=== PATIENT | male | born 1950 | race Caucasian/White ===

== ENCOUNTER 2022-03-30 13:34 | Emergency (ER) | payer MEDICARE, SELFPAY ==
[2022-03-30 13:51] VITALS: BP 134/83; PULSE 86; RESP 18; TEMP 36.4; O2SAT 98; BMI 36.6
--- NOTE | 2022-03-30 13:54 | XR_ITS ---
WS: [id number] Exam: XR chest 1V portable [id number] Date/Time of Exam: 03/30/2022 1:54 PM Reason For Exam: Possible new onset AFIB No priors. Mild cardiac enlargement noted. The lungs are clear and fully inflated. No pleural effusions. The med iastinum is normal in contour. Regional bony structures are intact. XR/XR chest 1V portable [id number] IMPRESSION: 1. Mild cardiac enlargement. No acute process.
--- NOTE | 2022-03-30 13:54 | ECG_ITS ---
[facility] Test Date: 2022-03-30 Pat Name: Jesus Yen Department: Room: Gender: Male Tableau Lead: : 1950 Requested By: Horace Garcia Order Number: [id number] Carmelo MD: Megan Coates M.D. Measurements Intervals [place] Rate: 93 P: NE: QRS: 13 QRSD: 81 T: 95 QT: 365 QTc: 455 Interpretive Statements ATRIAL FIBRILLATION WITH ABERRANT CONDUCTION OR VENTRICULAR PREMATURE COMPLEXES NONSPECIFIC ST & T-WAVE ABNORMALITY INTERPRETATION BASED ON A DEFAULT AGE OF 40 YEARS No previous ECG available for comparison Electronically Signed On 03-31-2022 0:19:56 CDT by Megan Coates M.D. [id number]
[2022-03-30 15:00] LABS: Basophils # 0.1 10^3/uL (0.0-0.1); Basophils % 0.7 %; Eosinophils # 0.1 10^3/uL (0.0-0.8); Eosinophils % 0.8 %; Hematocrit 48.7 % (42.0-52.0); Hemoglobin 15.9 g/dL (11.7-16.6); Lymphocytes # 1.8 10^3/uL (0.8-4.8); Lymphocytes % 21.1 %; Mean Corpuscular HGB Conc 32.6 g/dL (30.0-36.0); Mean Corpuscular Hemoglobin 31.9 pg (28.0-34.0); Mean Corpuscular Volume 97.6 fl (80-94); Mean Platelet Volume 12.4 fL (7.4-10.4); Monocytes # 0.9 10^3/uL (0.2-0.9); Monocytes % 10.5 %; Neutrophils % 66.7 %; Nucleated Red Blood Cells % 0 %; Platelet Count 106 10^3/cmm (130-400); Red Blood Count 4.99 10^6/uL (4.1-5.3); Red Cell Distribution Width 13.1 % (12.1-15.1); White Blood Count 8.4 10^3/uL (4.0-10.0)
[2022-03-30 15:28] LABS: Troponin(5th) Baseline 7 ng/L (0-15)
--- NOTE | 2022-03-30 15:30 | ED_ITS ---
HPI - General Adult General: Chief complaint: Chest Pain Stated complaint: Dr. Way sent for possible heart issues Time Seen by Provider: 03/30/22 15:22 Source: patient and family Mode of arrival: ambulatory Limitations: no limitations History of Present Illness: This patient was sent to the emergency department by the water treatment technician because of concerns about what appeared to be in new onset atrial fibrillation on his EKG. Patient states he had cataract removal and intraocular lens implant done 2 weeks ago and which occurred without any issues. He states he had the same procedure performed on the opposite eye today. Apparently sometime either during before or after surgery an EKG revealed a what appeared to be an atrial fibrillation rhythm. The patient states he has never been told he had this condition previously. He states he is pretty healthy and very active. 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 He c urrently is totally asymptomatic at this time. He states that he has not had any cardiovascular issues. He does not drink alcohol, smoke tobacco. Denies any family history of atrial fibrillation. He takes lisinopril for hypertension. He states he gets his primary care in [facility] and is never had any issues with heart rhythm issues based upon those examinations. Associated symptoms: Deny chest pain, dyspnea, headache(s), nausea, rash, palpitations, syncope or vomiting Review of Systems Const: Denies: fever(s) or chills Eyes: Denies: change in vision ENMT: Denies: throat pain, odynophagia, change in hearing, nasal discharge or nasal congestion Card: Denies: chest pain, palpitations, syncope or pre-syncope Resp: Denies: dyspnea, productive cough or non-productive cough GI: Denies: abdominal pain, nausea or vomiting : Denies: flank pain, difficulty urinating, dysuria or urinary frequency Musc: Denies: neck pain, back pain, extremity pain or extremity swelling Skin/Breast: Denies: rash or pruritus Neuro: Denies: headache(s), numbness in extremities or weakness in extremities Psych: Denies: anxiety or depression Endo: Denies: polyuria or polydipsia Terry/Lymph: Denies: easy bruising or easy bleeding Physical Exam Narrative: EXAM NARRATIVE: Patient is wearing dark glasses (status post cataract removal) and is alert and speaks in goal-directed sentences. Const: COMMON NORMALS: no acute distress, patient oriented x3 and no li mitations NUTRITIONAL APPEARANCE: overweight HENMT: COMMON NORMALS: normocephalic, atraumatic, Normal nasal mucous memb ranes and turbinates present, moist oral mucous membranes and oropharynx normal HEAD & SCALP: normocephalic and atraumatic FACE & SINUS: normal facial exam NOSE: Normal nasal mucous membranes and turbinates present Eye: OTHER: Currently status post cataract removal and intraocular lens implant from earlier today is wearing post operative dark glasses. Neck/C-Spine: COMMON NORMALS: full ROM, no JVD, Thyroid normal and No carotid bruits THYROID: Thyroid normal Chest: COMMONS NORMALS: normal inspection of the chest Resp: COMMON NORMALS: normal respiratory effort, No retractions, No use of accessory muscles and clear to auscultation bilaterally AUSCULTATION: clear to auscultation bilaterally Cardio: COMMON NORMALS: no JVD, No murmurs present (Cardio) and Peripheral pulses 2+ throughout RHYTHM: abnormal rhythm irregularly irregular PERIPHERAL PULSES: Peripheral pulses 2+ throughout GI: COMMON NORMALS: Normal to inspection, nondistended, normoactive bowel sounds present, Soft to palpation and non-tender PALPATION: Yes Soft to p alpation : COMMON NORMALS: Yes no CVA tenderness BLADDER/KIDNEY EXAM: Yes no CVA tenderness Back/Pelvis: COMMON NORMALS: no CVA tenderness, thoracic and lumbar spine normal to inspection, no thoracic nor lumbar tenderness and thoraco-lumbar ROM normal Extremity: COMMON NORMALS: normal to inspection, capillary refill normal, no joint enlargement, no calf tenderness and no pedal edema Neuro: COMMON NORMALS: patient oriented x3, moves all extremities and no sensory deficits noted SPEECH: speech normal Psych: COMMON NORMALS: mental status grossly normal Skin: COMMON NORMALS: no rashes or lesions noted and turgor normal GENERAL SKIN EXAM: no rashes or lesions noted and turgor normal Course Reevaluation(s): Reevaluation #1: Patient rate still remains controlled but still in atrial fibrillation. His pressure is risen some small amount but it is likely due to his being anxious about being in the emergency department also he is due for his evening dose of lisinopril. No other new or focal findings on repeat examination. Time: 17:53 Vital Signs: Vital signs: Vital Signs Temperature 97.5 F L 03/30/22 13:51 Pulse Rate 86 03/30/22 13:51 Respiratory Rate 18 03/30/22 13:51 Blood Pressure 134/83 03/30/22 13:51 Pulse Oximetry 98 03/30/22 13:51 Oxygen Delivery Me thod 03/30/22 13:51 MDM - General Adult Medical Decision Making Patient with newly discovered AF atrial fibrillation. Patient is totally asympt omatic with this condition. His work-up today has not revealed any evidence of ischemia, cardiomegaly or other clinical features of congestive heart failure and his vitals are otherwise stable and reassuring. Given his asymptomatic nature its uncertain whether he has been in atrial fib and how long of a duration. And therefore given his current clinical picture it is of uncertain duration cardioversion would not be recommended at this time. He has a cardiology appointment for 27 April. I discussed the risks and benefits of using a medication for stroke prevention and he voices understanding agrees to proceed. We will start him on Eliquis 5 mg twice daily given his age and creatinine and also have him start taking magnesium 4 mg daily. We discussed his follow-up as well as specific reasons to return to this or the nearest emergency department. He and his spouse voiced understanding. He is stable at this time for discharge. Current recommendations do not preclude Eliquis after cataract surgery Medical Records I reviewed the patient's medical records. Lab Data I reviewed the patient's lab results. : 03/30/22 14:50 03/30/22 14:50 Radiology Impressions Chest X-Ray 03/30/22 13:54 IMPRESSION: 1. Mild cardiac enlargement. No acute process. Laboratory Results WBC 8.4 10^3/uL (4.0-10.0) 03/30/22 14:50 RBC 4.99 10^6/uL (4.1-5.3) 03/30/22 14:50 Hgb 15.9 g/dL (11.7-16.6) 03/30/22 14:50 Hct 48.7 % (42.0-52.0) 03/30/22 14:50 MCV 97.6 fl (80-94) H 03/30/22 14:50 MCH 31.9 pg (28.0-34.0) 03/30/22 14:50 MCHC 32.6 g/dL (30.0-36.0) 03/30/22 14:50 RDW 13.1 % (12.1-15.1) 03/30/22 14:50 Plt Count 106 10^3/cmm (130-400) L 03/30/22 14:50 MPV 12.4 fL (7.4-10.4) H 03/30/22 14:50 Neut % (Auto) 66.7 % 03/30/22 14:50 Lymph % (Auto) 21.1 % 03/30/22 14:50 Moffat % (Auto) 10.5 % 03/30/22 14:50 Eos % (Auto) 0.8 % 03/30/22 14:50 Baso % (Auto) 0.7 % 03/30/22 14:50 Neut # (Auto) 5.60 10^3/uL (1.8-7.7) 03/30/22 14:50 Lymph # (Auto) 1.8 10^3/uL (0.8-4.8) 03/30/22 14:50 Moffat # (Auto) 0.9 10^3/uL (0.2-0.9) 03/30/22 14:50 Eos # (Auto) 0.1 10^3/uL (0.0-0.8) 03/30/22 14:50 Baso # (Auto) 0.1 10^3/uL (0.0-0.1) 03/30/22 14:50 Nucleated RBC % (auto) 0 % 03/30/22 14:50 Nucleated RBCs # 0.0 /100WBC 03/30/22 14:50 Sodium 137 mmol/L (136-145) 03/30/22 14:50 Potassium 4.2 mmol/L (3.5-5.1) 03/30/22 14:50 Chloride 100 mmol/L (98-107) 03/30/22 14:50 Carbon Dioxide 28 mmol/L (22-29) 03/30/22 14:50 Anion Gap 13.2 (5-19) 03/30/22 14:50 BUN 19 mg/dL (8-23) 03/30/22 14:50 Creatinine 0.8 mg/dL (0.7-1.2) 03/30/22 14:50 GFR Calculation 95.6 mL/min (90-130) 03/30/22 14:50 Glucose 94 mg/dL (65-115) 03/30/22 14:50 Calculated Osmolality 286 mOsm/kg (285-295) 03/30/22 14:50 Calcium 9.2 mg/dL (8.5-10.5) 03/30/22 14:50 Total Bilirubin 0.7 mg/dL (0.15-1.2) 03/30/22 14:50 AST 21 U/L (0-40) 03/30/22 14:50 ALT 23 U/L (0-41) 03/30/22 14:50 Alkaline Phosphatase 58 U/L (40-130) 03/30/22 14:50 Troponin T Baseline 7 ng/L (0-15) 03/30/22 14:50 Troponin T 120 Minute 6.00 ng/L (0-15) 03/30/22 16:49 NT-Pro-B Natriuret Pep 470 pg/mL (0-125) H 03/30/22 14:50 Total Protein 6.8 g/dL (6.6-8.7) 03/30/22 14:50 Albumin 4.1 g/dL (3.5-5.2) 03/30/22 14:50 Globulin 2.7 g/dL (1.3-4.6) 03/30/22 14:50 TSH 0.93 uIU/mL (0.27-4.20) 03/30/22 14:50 EKG Data EKG 1: I personally reviewed and interpreted this EKG as follows: Interpretation: Initial resting EKG reveals a rhythm which is irregularly irregular but a controlled ventricular response of [address]-T wave changes noted. No prior tracing available within the system. Computer generated interpretation: Chest X-Ray 03/30/22 13:54 IMPRESSION: 1. Mild cardiac enlargement. No acute process. EKG 2: I personally reviewed and interpreted this EKG as follows: Interpretation: Second EKG this visit reveals a underlying atrial fibrillation with a controlled ventricular response of 77 bpm. Normal intervals, normal axis. No acute ST-T wave changes noted. Computer generated interpretation: Chest X-Ray 03/30/22 13:54 IMPRESSION: 1. Mild cardiac enlargement. No acute process. Discharge Plan Discharge Patient Disposition: Home Clinical Impression: Atrial fibrillation Condition: Stable Prescriptions: New Eliquis 5 mg tablet 5 mg PO BID Qty: 60 1RF No Action zinc acetate 50 mg (zinc) Capsule 50 mg PO DAILY Fish Oil Concentrate 1,000 mg Capsule 1,000 mg PO DAILY lisinopril 20 mg tablet 20 mg PO BID Aspir-81 81 mg Tablet,Delayed Release (Dr/Ec) 81 mg PO BEDTIME Vitamin C 500 mg Tablet 500 mg PO DAILY Healthy Eyes 300 mcg-200 mg-27 mg-2 mg Tablet 1 tab PO BID magnesium oxide 400 mg magnesium Tablet 400 mg PO DAILY Discharge Orders: Discharge ED (Routine); Ordered 03/30/22 Ordered By: Markel Erickson Referrals: Yeison Way MD [Primary Care Provider] - Discharge Diet: Usual diet Discharge Activity: Increase activity as tolerated Patient Instructions: Opioid Safety, Pain Management Activity Restrictions/Additional Instructions: Take the blood thinner medications as we have prescribed. Also purchase yzeo-auj-opqxtal 400 mg of magnesium and take 1 to 2 pills daily. Follow-up with a director economic on 27 April as scheduled. Should you develop chest pain, shortness of breath, persistent fast heart rate over 100 or any other concerns return to this or the nearest emergency department. Avoid risky activities while on blood thinning medications. Coding Level of Care Code ED Nutrition Representative for Julio C Quiroz Exam Comprehensive
[2022-03-30 15:36] LABS: Alanine Aminotransferase 23 U/L (0-41); Albumin Level 4.1 g/dL (3.5-5.2); Alkaline Phosphatase 58 U/L (40-130); Anion Gap 13.2 (5-19); Aspartate Amino Transferase 21 U/L (0-40); Blood Urea Nitrogen 19 mg/dL (8-23); Calcium 9.2 mg/dL (8.5-10.5); Carbon Dioxide 28 mmol/L (22-29); Chloride 100 mmol/L (98-107); Globulin 2.7 g/dL (1.3-4.6); Glomerular Filtration Rate 95.6 mL/min (90-130); Glucose 94 mg/dL (65-115); NT Pro B Type Natriuretic Pept 470 pg/mL (0-125); Osmolality Calculated 286 mOsm/kg (285-295); Potassium 4.2 mmol/L (3.5-5.1); Sodium 137 mmol/L (136-145); Total Bilirubin 0.7 mg/dL (0.15-1.2); Total Protein 6.8 g/dL (6.6-8.7)
--- NOTE | 2022-03-30 15:54 | ECG_ITS ---
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 Measurements Intervals [place] Rate: 77 P: TN: QRS: 6 QRSD: 77 T: 87 QT: 355 QTc: 404 Interpretive Statements ATRIAL FIBRILLATION WITH ABERRANT CONDUCTION OR VENTRICULAR PREMATURE COMPLEXES ABNORMAL RHYTHM ECG Compared to ECG 03/30/2022 13:47:57 T-wave abnormality no longer present Electronically Signed On 03-31-2022 0:25:52 CDT by Megan Coates M.D. [id number]
[2022-03-30 16:00] LABS: Thyroid Stimulating Hormone 0.93 uIU/mL (0.27-4.20)
[2022-03-30 16:23] VITALS: BP 135/87; PULSE 84; O2SAT 95
[2022-03-30 16:30] VITALS: BP 141/79; PULSE 73; O2SAT 96
[2022-03-30 17:00] VITALS: BP 174/125; PULSE 79; O2SAT 97
[2022-03-30 17:30] VITALS: BP 168/110; PULSE 82; O2SAT 97
[2022-03-30] MEDS: apixaban 5 mg Tablet PO (18:07)
== END 2022-03-30 18:15 | disposition home or self-care (01) ==
PROVIDERS: Family Medicine; Emergency Provider Emergency Medicine; PCP Ophthalmology
DX: I48.91 Unspecified atrial fibrillation (principal)
CPT/HCPCS: 36415; 71045; 80053; 83880; 84443; 84484; 85025; 93005; 99285

== ENCOUNTER 2023-01-01 14:45 | Observation (INO) | payer MEDICARE, SELFPAY ==
[2023-01-01] VITALS (12 sets, daily range): BP systolic 108–179; BP diastolic 77–106; PULSE 94–134; RESP 16–28; TEMP 36.6–36.9; O2SAT 90–99
--- NOTE | 2023-01-01 14:57 | ED_ITS ---
HPI - General Adult General: Chief complaint: Abdominal Pain Stated complaint: Left side rib pain Time Seen by Provider: 01/01/23 14:57 History of Present Illness: Mr. Yen is a 72-year-old gentleman for left-sided chest discomfort. He ports onset of symptoms without known specific provoking event 5 days ago. Initially had improvement with taking izzx-zpx-utbznnr medications however symptoms have since resumed. He describes sharp pain in the left side of his chest radiating upwards. Denies other associated symptoms. Apparently has a history of atrial fibrillation however has not been taking any medications including anticoagulation as he has been trying to manage his health with diet and lifestyle. Moderate intensity symptoms. Now persistent course. He does endorse recent prolonged car ride however denies calf pain or leg swelling. No other specific changes in health, exacerbating, or alleviating factors identified. Onset (ago): day(s) Location: chest Severity: moderate Pain Consistency: constant Relieving factors: none Exacerbating factors: none Review of Systems General: Reports: 10 or more systems reviewed and unremarkable except in HPI and below PFSH ED PFSH: Medical History (Updated 01/03/23 @ 00:01 by TRISH Vazquez) History of atrial fibrillation History of hypertension Surgical History (Updated 01/01/23 @ 18:51 by Lamine Laguna MD) No pertinent past surgical history Family History (Updated 01/01/23 @ 18:51 by Lamine Laguna MD) Mother Stroke Seizure Social History (Updated 01/01/23 @ 18:51 by Lamine Laguna MD) Smoking and tobacco status: never smoked Alcohol intake: never Substance/Drug Use: never Physical Exam Const: COMMON NORMALS: alert GENERAL APPEARANCE: cooperative and well developed HENMT: COMMON NORMALS: normocephalic and atraumatic HEAD & SCALP: normocephalic and atraumatic Eye: COMMON NORMALS: conjunctivae normal CONJUNCTIVA: Yes conjunctivae normal SCLERA: sclerae normal Neck/C-Spine: COMMON NORMALS: supple GENERAL: Yes trachea midline Resp: COMMON NORMALS: clear to auscultation bilaterally EFFORT & INSPECTION: Yes able to speak in complete sentences AUSCULTATION: clear to auscultation bilaterally Cardio: RATE: tachycardic RHYTHM: abnormal rhythm irregularly irregular GI: COMMON NORMALS: Soft to palpation PALPATION: Yes Soft to palpation and No Tenderness to palpation present (GI) Extremity: GENERAL: Yes normal exam except as noted and No edema Neuro: COMMON NORMALS: moves all extremities SENSORIUM/ORIENTATION: Yes alert and No Orientation impaired Psych: COMMON NORMALS: mental status grossly normal and Normal thought process present THOUGHT PROCESS: Normal thought process present Course Vital Signs: Vital signs: Vital Signs Temperature 98.4 F 01/02/23 15:32 Pulse Rate 81 01/02/23 15:32 Respiratory Rate 16 01/02/23 15:32 Blood Pressure 109/82 01/02/23 11:34 Pulse Oximetry 96 01/02/23 15:32 Oxygen Delivery Me thod Room Air 01/02/23 11:34 [facility] - General Adult Medical Decision Making 72-year-old lady presenting with upper abdominal and chest pain. Exam as above. Tachycardic with atrial fibrillation and RVR. Tachypneic. Nontoxic. EKG demonstrates A-fib with RVR, left axis deviation with nonspecific ST segment abnormalities. Labs with leukocytosis and normal hemoglobin. Metabolic panel without acute derangement explain symptoms. Negative range 2-hour delta troponin. Chest x-ray with cardiomegaly however no lobar consolidation or pneumothorax. Given location of pain and no clear explanation CT warranted. CT demonstrates no PE, small pleural effusions, cardiomegaly and pericardial effusion, no clear intra-abdominal findings as cause of epigastric pain. Patient treated with aspirin, small fluid bolus, subsequently diltiazem and drip. The results of ED evaluation were discussed with the patient including plan for admission due to requirement for level of care not available if discharged to prevent significant worsening/deterioration. Patient agreeable with plan. Discussed with hospitalist service who was agreeable to admit patient. Medical Records I reviewed the patient's medical records. Lab Data I reviewed the patient's lab results. 01/02/23 04:24 01/02/23 04:24 Radiology Impressions Chest X-Ray 01/01/23 15:01 IMPRESSION: Mild cardiomegaly and without acute findings or significant change with prior exam. Chest/Abdomen/Pelvis CT 01/01/23 15:59 IMPRESSION: 1. No CT findings to indicate pulmonary embolus. No findings thoracic aortic dissection. 2. Very small posterior pleural effusion mid and lower left chest and trace posterior pleural effusion lower right chest. Subjacent atelectasis within the lung bases, [id number]-[id number]-fzww-right. 3. Mild cardiomegaly and small pericardial effusion, along with coronary artery and aortic valve calcification. 4. Mild benign healed granulomatous disease change. IMPRESSION: 1. Mild atherosclerotic vascular calcification without abdominal aortic aneurysm. 2. Prostate gland is mildly prominent with a few calcifications and with mild indentation on the posteroinferior urinary bladder. 3. No acute findings otherwise. Laboratory Results WBC 11.9 10^3/uL (4.0-10.0) H 01/01/23 15: RBC 4.96 10^6/uL (4.1-5.3) 01/01/23 15: Hgb 15.7 g/dL (11.7-16.6) 01/01/23 15: Hct 47.9 % (42.0-52.0) 01/01/23 15: MCV 96.6 fl (80-94) H 01/01/23 15: MCH 31.7 pg (28.0-34.0) 01/01/23 15: MCHC 32.8 g/dL (30.0-36.0) 01/01/23 15: RDW 13.0 % (12.1-15.1) 01/01/23 15: Plt Count 148 10^3/cmm (130-400) 01/01/23 15: MPV 11.4 fL (7.4-10.4) H 01/01/23 15: Neut % (Auto) 78.8 % 01/01/23 15: Lymph % (Auto) 11.0 % 01/01/23 15: Cotton % (Auto) 9.3 % 01/01/23 15: Eos % (Auto) 0.3 % 01/01/23: Baso % (Auto) 0.3 % 01/01/23 15: Neut # (Auto) 9.40 10^3/uL (1.8-7.7) H 01/01/23 15: Lymph # (Auto) 1.3 10^3/uL (0.8-4.8) 01/01/23: Cotton # (Auto) 1.1 10^3/uL (0.2-0.9) H 01/01/23 15:29 Eos # (Auto) 0.0 10^3/uL (0.0-0.8) 01/01/23 15:29 Baso # (Auto) 0.0 10^3/uL (0.0-0.1) 01/01/23 15:29 Nucleated RBC % (auto) 0 % 01/01/23 15: Nucleated RBCs # 0.0 /100WBC 01/01/23 15:29 ESR 18 mm/hr (0-10) H 01/01/23 15:29 D-Dimer 1.10 ug/mIFEU (0-0.59) H 01/01/23 15:29 Sodium 138 mmol/L (136-145) 01/01/23 15:29 Potassium 4.3 mmol/L (3.5-5.1) 01/01/23 15: Chloride 101 mmol/L (98-107) 01/01/23 15: Carbon Dioxide 25 mmol/L (22-29) 01/01/23 15:29 Anion Gap 16.3 (5-19) 01/01/23 15:29 BUN 16 mg/dL (8-23) 01/01/23 15: Creatinine 0.7 mg/dL (0.7-1.2) 01/01/23 15:29 GFR Calculation Not Reportable 01/01/23 15:29 Glucose 113 mg/dL (65-115) 01/01/23 15:29 Estimat Average Glucose 111 01/01/23 15:29 Hemoglobin A1c 5.5 % (4.0-6.0) 01/01/23 15:29 Calculated Osmolality 288 mOsm/kg (285-295) 01/01/23 15:29 Calcium 8.9 mg/dL (8.5-10.5) 01/01/23 15: Magnesium 2.0 mg/dL (1.7-2.3) 01/01/23 15:29 Total Bilirubin 1.2 mg/dL (0.15-1.2) 01/01/23 15:29 AST 18 U/L (0-40) 01/01/23 15: ALT 19 U/L (0-41) 01/01/23 15:29 Alkaline Phosphatase 77 U/L (40-130) 01/01/23 15:29 Troponin T Baseline 10 ng/L (0-15) 01/01/23 15:29 Troponin T 120 Minute 9.58 ng/L (0-15) 01/01/23 17:59 Delta Troponin T -0.42 ABS# (0-10) L 01/01/23 17:59 C-Reactive Protein 68.6 mg/L (0.0-4.9) H 01/01/23 17:59 NT-Pro-B Natriuret Pep 932 pg/mL (0-125) H 01/01/23 15:29 Total Protein 6.8 g/dL (6.6-8.7) 01/01/23 15: Albumin 3.8 g/dL (3.5-5.2) 01/01/23 15: Globulin 3.0 g/dL (1.3-4.6) 01/01/23 15:29 Triglycerides 55 mg/dL (0-150) 01/01/23 17:59 Cholesterol 152 mg/dL (0-200) 01/01/23 17:59 LDL Cholesterol, Calc 104 mg/dL (50-129) 01/01/23 17:59 HDL Cholesterol 37 mg/dL (60-100) L 01/01/23 17:59 LDL/HDL Ratio 2.81 RATIO (0.00-3.22) 01/01/23 17:59 Cholesterol/HDL Ratio 4.11 mg/dL (1.0-5.00) 01/01/23 17:59 TSH 0.84 uIU/mL (0.27-4.20) 01/01/23 17:59 Critical Care Time Critical Care Time: Critical Care Time: Yes Total Critical Care Time: 35 Attestation: Due to a high probability of clinically significant, possibly life threatening deterioration, the patient required my highest level of attention and preparedness to intervene emergently and I personally spent this critical care time directly and personally managing the patient. This critical care time inc luded obtaining a history; examining the patient; pulse oximetry; ordering and review of laboratory and imaging studies; arranging urgent treatment with development of a management plan; evaluation of patient's response to treatment; frequent reassessment; and, discussions with other providers as applicable. It was exclusive of separately billable procedures. Primary system is cardiac Discharge Plan Discharge Patient Disposition: Admitted As Inpatient Admit Provider: Lamine Laguna Clinical Impression: Atrial fibrillation with RVR, Cardiac volume overload, Chest pain Condition: Stable Discharge Diet: Cardiac Discharge Activity: Resume usual activity Coding Level of Care Code ED Photographer Apprentice Lithographic for Julio C Quiroz
--- NOTE | 2023-01-01 15:01 | XRR_ITS ---
PROCEDURE INFORMATION: Exam: XR Chest Exam date and time: 01/01/2023 3:07 PM Age: 72 years old Clinical indication: Pain; Chest pressure; Additional info: Cp TECHNIQUE: Imaging protocol: Radiologic exam of the chest. Views: 1 view. COMPARISON: CR XR chest 1V portable [id number] 03/30/2022 3:21 PM FINDINGS: Tubes, catheters and devices: Overlying monitor leads. Lungs: Unremarkable. No consolidation. Pleural spaces: Unremarkable. No pleural effusion. No pneumothorax. Heart/Mediastinum: Mild cardiomegaly as seen with prior exam. Bones/joints: Visualized osseous structures show no acute abnormality. Mild degenerative change about the thoracic spine and shoulders. XR/XR chest 1V portable [id number] IMPRESSION: Mild cardiomegaly and without acute findings or significant change with prior exam.
--- NOTE | 2023-01-01 15:02 | ECG_ITS ---
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 Measurements Intervals [place] Rate: 133 P: 0 SC: 0 QRS: -11 QRSD: 83 T: 58 QT: 298 QTc: 444 Interpretive Statements ATRIAL FIBRILLATION WITH RAPID VENTRICULAR RESPONSE NONSPECIFIC ST & T-WAVE ABNORMALITY Compared to ECG 03/30/2022 17:16:14 T-wave abnormality now present Ventricular premature complex(es) no longer present Aberrant conduction of supraventricular beat(s) no longer present Electronically Signed On 01-03-2023 8:33:57 CDT by Remy Estrada M.D. [id number]
[2023-01-01 15:38] LABS: Basophils % 0.3 %; Eosinophils % 0.3 %; Hematocrit 47.9 % (42.0-52.0); Hemoglobin 15.7 g/dL (11.7-16.6); Lymphocytes # 1.3 10^3/uL (0.8-4.8); Mean Corpuscular HGB Conc 32.8 g/dL (30.0-36.0); Mean Corpuscular Hemoglobin 31.7 pg (28.0-34.0); Mean Corpuscular Volume 96.6 fl (80-94); Mean Platelet Volume 11.4 fL (7.4-10.4); Monocytes # 1.1 10^3/uL (0.2-0.9); Monocytes % 9.3 %; Neutrophils % 78.8 %; Nucleated Red Blood Cells % 0 %; Platelet Count 148 10^3/cmm (130-400); Red Blood Count 4.96 10^6/uL (4.1-5.3); White Blood Count 11.9 10^3/uL (4.0-10.0)
[2023-01-01] MEDS: aspirin 81 mg Chew Tablet 324 MG PO (15:52)
[2023-01-01] MEDS: sodium chloride 0.9% 500 ML 999 ML IV (15:56)
--- NOTE | 2023-01-01 15:59 | CTR_ITS ---
PROCEDURE INFORMATION: Exam: CTA Chest With Contrast Exam date and time: 01/01/2023 5:01 PM Age: 72 years old Clinical indication: Abdominal tenderness; Other: Pain; Additional info: L chest and luq pain TECHNIQUE: Imaging protocol: Computed tomographic angiography of the chest with contrast. Exam focused on the arteries. 3D rendering (Not supervised by radiologist): MIP and/or 3D reconstructed images were created by the technologist. Radiation optimization: All CT scans at this facility use at least one of these dose optimization techniques: automated exposure control; mA and/or kV adjustment per patient size (includes targeted exams where dose is matched to clinical indication); or iterative reconstruction. Contrast material: OMNIPAQUE 350; Contrast volume: 100 ml; Contrast route: INTRAVENOUS (IV); REPORTING DATA: Count of CT and Cardiac NM exams in prior 12 months: This patient has received 0 known CTs and 0 known cardiac nuclear medicine studies in the 12 months prior to the current study. COMPARISON: CR (CHEST, ) 01/01/2023 3:07 PM RADIATION DOSE METRICS: Total DLP (mGy-cm): 1112.1 FINDINGS: Pulmonary arteries: No significant hypodense pulmonary artery filling defects to indicate pulmonary embolus. Aorta: No findings thoracic aortic dissection aneurysm. Lungs: See pleural space finding. Pleural spaces: Very small posterior pleural effusion mid and lower left chest. Trace posterior pleural effusion lower right chest. Subjacent basilar atelectasis, [id number]-wrycnqy-wdnm-right. No focal pulmonary parenchymal infiltrate or consolidation. No mass. No pneumothorax. Heart: Mild cardiomegaly. Small pericardial effusion. Coronary artery calcification. Aortic valve calcification. Lymph nodes: Mild calcified nodes inferior right hilum and calcified granuloma lower right lung indicating benign healed granulomatous disease. Nonspecific mediastinal lymph nodes without significant enlargement. Bones/joints: Spondylotic change Soft tissues: Unremarkable. PROCEDURE INFORMATION: Exam: CT Abdomen And Pelvis With Contrast Exam date and time: 01/01/2023 5:01 PM Age: 72 years old Clinical indication: Abdominal tenderness; Other: Pain; Additional info: L chest and luq pain TECHNIQUE: Imaging protocol: Computed tomography of the abdomen and pelvis with contrast. Radiation optimization: All CT scans at this facility use at least one of these dose optimization techniques: automated exposure control; mA and/or kV adjustment per patient size (includes targeted exams where dose is matched to clinical indication); or iterative reconstruction. Contrast material: OMNIPAQUE 350; Contrast volume: 100 ml; Contrast route: INTRAVENOUS (IV); REPORTING DATA: Count of CT and Cardiac NM exams in prior 12 months: This patient has received 0 known CTs and 0 known cardiac nuclear medicine studies in the 12 months prior to the current study. COMPARISON: CR (CHEST, ) 01/01/2023 3:07 PM RADIATION DOSE METRICS: Total DLP (mGy-cm): 1112.1 FINDINGS: Liver: Normal. No mass. Gallbladder and bile ducts: Normal. No calcified stones. No ductal dilation. Pancreas: Normal. No ductal dilation. Spleen: Normal. No splenomegaly. Adrenal glands: Normal. No mass. Kidneys and ureters: Normal. No hydronephrosis. Stomach and bowel: Unremarkable. No obstruction. No mucosal thickening. No CT findings of diverticulitis. Appendix: No evidence of appendicitis. Intraperitoneal space: Unremarkable. No free air. No significant fluid collection. Vasculature: Mild atherosclerotic calcification without aneurysmal dilatation of the abdominal aorta. Lymph nodes: Unremarkable. No enlarged lymph nodes. Urinary bladder: See Reproductive finding. Reproductive: Several prostate calcification noted with mildly prominent prostate gland. Urinary bladder demonstrates mild prostate indentation posteriorly and inferiorly and otherwise unremarkable. Bones/joints: Mild spondylotic change of the lumbar spine. Acute osseous abnormality. Soft tissues: Unremarkable. CT/CT angio chest w abd pel w con IMPRESSION: 1. No CT findings to indicate pulmonary embolus. No findings thoracic aortic dissection. 2. Very small posterior pleural effusion mid and lower left chest and trace posterior pleural effusion lower right chest. Subjacent atelectasis within the lung bases, sark-[id number]-tmnd-right. 3. Mild cardiomegaly and small pericardial effusion, along with coronary artery and aortic valve calcification. 4. Mild benign healed granulomatous disease change. IMPRESSION: 1. Mild atherosclerotic vascular calcification without abdominal aortic aneurysm. 2. Prostate gland is mildly prominent with a few calcifications and with mild indentation on the posteroinferior urinary bladder. 3. No acute findings otherwise.
[2023-01-01 16:03] LABS: Troponin(5th) Baseline 10 ng/L (0-15)
[2023-01-01 16:13] LABS: Alanine Aminotransferase 19 U/L (0-41); Albumin Level 3.8 g/dL (3.5-5.2); Alkaline Phosphatase 77 U/L (40-130); Anion Gap 16.3 (5-19); Aspartate Amino Transferase 18 U/L (0-40); Blood Urea Nitrogen 16 mg/dL (8-23); Calcium 8.9 mg/dL (8.5-10.5); Carbon Dioxide 25 mmol/L (22-29); Chloride 101 mmol/L (98-107); Glucose 113 mg/dL (65-115); NT Pro B Type Natriuretic Pept 932 pg/mL (0-125); Osmolality Calculated 288 mOsm/kg (285-295); Potassium 4.3 mmol/L (3.5-5.1); Sodium 138 mmol/L (136-145); Thyroid Stimulating Hormone 1.04 uIU/mL (0.27-4.20); Total Bilirubin 1.2 mg/dL (0.15-1.2); Total Protein 6.8 g/dL (6.6-8.7)
[2023-01-01] MEDS: iohexol 350 mg/mL 500 mL Btl (per mL) IV (16:51)
--- NOTE | 2023-01-01 17:02 | ECG_ITS ---
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 Measurements Intervals [place] Rate: 107 P: 0 MI: 0 QRS: 0 QRSD: 81 T: 65 QT: 314 QTc: 421 Interpretive Statements ATRIAL FIBRILLATION WITH RAPID VENTRICULAR RESPONSE WITH ABERRANT CONDUCTION OR VENTRICULAR PREMATURE COMPLEXES NONSPECIFIC T-WAVE ABNORMALITY Compared to ECG 01/01/2023 15:04:59 Ventricular premature complex(es) now present Aberrant conduction of supraventricular beat(s) now present T-wave abnormality still present Electronically Signed On 01-03-2023 8:37:31 CDT by Remy Estrada M.D. [id number]
[2023-01-01] MEDS: dilTIAZem 5 mg/mL SDV 5 mL 20 MG IVP (18:02)
[2023-01-01] MEDS: dilTIAZem 100 MG in sodium chloride 0.9% (add-van) 100 ML IV (18:03)
[2023-01-01 18:32] LABS: Troponin 5 2HR 9.58 ng/L (0-15)
[2023-01-01] MEDS: morphine 4 mg/mL SDV 1 mL 2 MG IVP ×2 (18:37→23:25)
--- NOTE | 2023-01-01 18:47 | P.HP_ITS ---
Providers/Chief Complaint Admitting Physician: Lamine Laguna MD Primary Care Provider: Demetra Whelan APN Chief Complaint: Left side rib pain History of Present Illness Jesus Yen is a 72 year old male with a past medical history of atrial fibrillation not on anticoagulation, hypertension, who presents to [facility] due to pain under his left breast. Patient tells me that he was diagnosed with A-fib when he had eye surgery, he was asymptomatic, he did not take any blood thinners or any medications, denies a history of CAD, no history of strokes, he tells me that he has had a stressful week, his sister is dying of liver cirrhosis, he is recently returned from a trip from [facility], no calf, calf swelling, hemoptysis, he started noticing pain under his left breast, radiating down the side, he tells me he has used up to 900 mg of ibuprofen for the pain last time he used this was yesterday evening, here in the emergency room he was diagnosed with A-fib with RVR Review of Systems Const: Denies: fever(s) Eyes: Denies: change in vision ENMT: Denies: throat pain Card: Reports: chest pain Resp: Denies: dyspnea GI: Denies: abdominal pain : Denies: flank pain or difficulty urinating Musc: Denies: neck pain or back pain Skin/Breast: Denies: rash Neuro: Denies: headache(s) Psych: Reports: anxiety Endo: Denies: polyuria Medications/Allergies Home Medications Medication Instructions Recorded Confirmed Last Taken Type ascorbic acid (vitamin C) 500 mg 500 mg PO DAILY 03/30/22 01/01/23 01/01/23 History tablet (Vitamin C) lisinopril 20 mg tablet 20 mg PO BID 03/30/22 01/01/23 01/01/23 History magnesium oxide 400 mg PO DAILY 03/30/22 01/01/23 01/01/23 History omega-3 fatty acids 1,000 mg 1,000 mg PO DAILY 03/30/22 01/01/23 01/01/23 History capsule Allergies Allergy/AdvReac Type Severity Reaction Status Date / Time No Known Allergies Allergy Verified 01/01/23 15:04 PFSH Acute PFSH: Medical History (Updated 01/01/23 @ 18:50 by Lamine Laguna MD) History of atrial fibrillation History of hypertension Surgical History (Updated 01/01/23 @ 18:51 by Lamine Laguna MD) No pertinent past surgical history Family History (Updated 01/01/23 @ 18:51 by Lamine Laguna MD) Mother Stroke Seizure Social History (Updated 01/01/23 @ 18:51 by Lamine Laguna MD) Smoking and tobacco status: never smoked Alcohol intake: never Substance/Drug Use: never Vitals/I&O/Wt Last Vital Signs Temp 98 F 01/01/23 18:09 Pulse 94 01/01/23 18:30 Resp 18 01/01/23 18:37 BP 119/83 01/01/23 18:30 Pulse Ox 95 01/01/23 18:30 O2 Del Method Room Air 01/01/23 18:30 Weight last 48 hrs Weight 121.563 kg Physical Exam Const: COMMON NORMALS: no acute distress and patient oriented x3 HENMT: COMMON NORMALS: normocephalic HEAD & SCALP: normocephalic Eye: COMMON NORMALS: Equal, round and reactive pupils present and EOMs intact bilaterally Neck/C-Spine: COMMON NORMALS: no JVD Lymph: LYMPHATIC: no lymphadenopathy noted Chest: COMMONS NORMALS: normal inspection of the chest OTHER: Left chest tenderness to palpation under left breast, Resp: COMMON NORMALS: normal respiratory effort, No retractions, No use of accessory muscles and clear to auscultation bilaterally AUSCULTATION: clear to auscultation bilaterally Cardio: COMMON NORMALS: no JVD, S1 normal heart sound present and S2 normal heart sound present HEART SOUNDS: S1 normal heart sound present and S2 normal heart sound present GI: COMMON NORMALS: Normal to inspection, nondistended, normoactive bowel sounds present, Soft to palpation and non-tender PALPATION: Yes Soft to palpation Extremity: COMMON NORMALS: no pedal edema Neuro: COMMON NORMALS: patient oriented x3, CN's II-XII intact bilaterally and moves all extremities Psych: COMMON NORMALS: mental status grossly normal Data 01/01/23 15:29 01/01/23 15:29 CXR: My impression: Shows cardiomegaly EKG 1: My Interpretation: Shows A-fib with RVR A&P Assessment and plan (1) Atrial fibrillation with RVR: (2) Chest pain: Plan A-fib with RVR -Continue Cardizem drip -Steve vas score 2, continue heparin drip -Full code -Heparin for DVT prophylaxis Chest pain -Serial EKGs, serial troponins, telemetry monitoring -Monitor for recurrent chest pain -Lipid panel, A1c Attestations Medical Necessity Statement*: Patient requires hospitalization, outpatient with observation, for A-fib with RVR, chest pain Diagnoses Atrial fibrillation with RVR I48.91 Chest pain R07.9
[2023-01-01 19:18] LABS: Troponin 5 2HR Delta -0.42 ABS# (0-10)
[2023-01-01 20:11] LABS: Erythrocyte Sedimentation Rate 18 mm/hr (0-10)
[2023-01-01 20:33] LABS: C Reactive Protein 68.6 mg/L (0.0-4.9); Chol HDL Ratio 4.11 mg/dL (1.0-5.00); Cholesterol 152 mg/dL (0-200); HDL Cholesterol 37 mg/dL (60-100); LDL Cholesterol Calculated 104 mg/dL (50-129); LDL HDL Ratio 2.81 RATIO (0.00-3.22); Thyroid Stimulating Hormone 0.84 uIU/mL (0.27-4.20); Triglycerides 55 mg/dL (0-150)
--- NOTE | 2023-01-01 20:42 | ECG_ITS ---
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 Measurements Intervals [place] Rate: 92 P: 0 TX: 0 QRS: -6 QRSD: 82 T: 31 QT: 339 QTc: 420 Interpretive Statements ATRIAL FIBRILLATION NONSPECIFIC ST & T-WAVE ABNORMALITY Compared to ECG 01/01/2023 17:22:56 Ventricular premature complex(es) no longer present Aberrant conduction of supraventricular beat(s) no longer present T-wave abnormality still present Electronically Signed On 01-03-2023 8:37:09 CDT by Remy Estrada M.D. [id number]
[2023-01-01] MEDS: dilTIAZem 30 mg Tablet PO (21:01)
[2023-01-01] MEDS: pantoprazole 40 mg SDV IVP (21:01)
[2023-01-01 21:03] LABS: Glucose Point of Care 116 mg/dL (70-110)
[2023-01-01 22:06] LABS: Troponin 5 6HR 10.34 ng/L (0-15)
[2023-01-01 22:08] LABS: Estmated Average Glucose 111; Hemoglobin A1C 5.5 % (4.0-6.0)
[2023-01-01 22:10] LABS: Troponin 5 6HR Delta 0.34 ng/L (0-12)
[2023-01-01] MEDS: heparin drip 25,000 UNIT/500 ML PREMIX 34 UNIT IV (22:25)
[2023-01-02] MEDS: dilTIAZem 30 mg Tablet PO ×3 (02:40→13:54)
[2023-01-02 04:00] VITALS: BP 110/75; PULSE 85; RESP 18; TEMP 36.8; O2SAT 93
[2023-01-02 04:32] LABS: Basophils # 0.1 10^3/uL (0.0-0.1); Basophils % 0.5 %; Eosinophils # 0.1 10^3/uL (0.0-0.8); Eosinophils % 0.8 %; Hematocrit 44.1 % (42.0-52.0); Lymphocytes # 1.7 10^3/uL (0.8-4.8); Lymphocytes % 16.2 %; Mean Corpuscular HGB Conc 31.7 g/dL (30.0-36.0); Mean Corpuscular Hemoglobin 31.4 pg (28.0-34.0); Mean Corpuscular Volume 98.9 fl (80-94); Mean Platelet Volume 11.2 fL (7.4-10.4); Monocytes # 1.1 10^3/uL (0.2-0.9); Monocytes % 10.4 %; Neutrophils # 7.54 10^3/uL (1.8-7.7); Neutrophils % 71.6 %; Nucleated Red Blood Cells % 0 %; Platelet Count 146 10^3/cmm (130-400); Red Blood Count 4.46 10^6/uL (4.1-5.3); Red Cell Distribution Width 13.1 % (12.1-15.1); White Blood Count 10.5 10^3/uL (4.0-10.0)
[2023-01-02 04:41] VITALS: PULSE 72
[2023-01-02 04:54] LABS: Partial Thromboplastin Time 79.3 SECONDS (23.9-36.7)
[2023-01-02 05:22] LABS: Alanine Aminotransferase 14 U/L (0-41); Albumin Level 3.4 g/dL (3.5-5.2); Alkaline Phosphatase 66 U/L (40-130); Anion Gap 18.1 (5-19); Aspartate Amino Transferase 12 U/L (0-40); Blood Urea Nitrogen 16 mg/dL (8-23); Calcium 8.6 mg/dL (8.5-10.5); Carbon Dioxide 22 mmol/L (22-29); Chloride 102 mmol/L (98-107); Globulin 2.6 g/dL (1.3-4.6); Glucose 116 mg/dL (65-115); Osmolality Calculated 288 mOsm/kg (285-295); Phosphorus 3.6 mg/dL (2.5-4.5); Potassium 4.1 mmol/L (3.5-5.1); Sodium 138 mmol/L (136-145)
[2023-01-02 05:33] LABS: NT Pro B Type Natriuretic Pept 746 pg/mL (0-125)
[2023-01-02 06:30] LABS: Glucose Point of Care 127 mg/dL (70-110)
[2023-01-02 07:34] VITALS: BP 116/93; PULSE 84; RESP 27; TEMP 31.7; O2SAT 94
[2023-01-02] MEDS: FUROsemide 10 mg/mL SDV 4mL 40 MG IVP (08:22)
[2023-01-02] MEDS: apixaban 5 mg Tablet PO (10:26)
[2023-01-02 11:34] VITALS: BP 109/82; PULSE 90; RESP 13; TEMP 36.9; O2SAT 93
[2023-01-02 12:13] LABS: Partial Thromboplastin Time 59.4 SECONDS (23.9-36.7)
[2023-01-02 14:08] VITALS: PULSE 81
--- NOTE | 2023-01-02 15:15 | P.DS_ITS ---
Discharge Providers Date of Admission: 01/01/23 18:55 Date of Discharge: January 02, 2023 Attending Provider at Admission: Lamine Laguna MD Attending Provider at Discharge: Lamine Laguna MD Primary Care Provider: Demetra Whelan APN Diagnoses at Discharge Discharge Diagnosis (1) Atrial fibrillation with RVR: Status: Acute (2) Chest pain: Status: Acute Reason for Visit Reason for Visit: Left side rib pain Hospital Course Hospital Course Jesus Yen is a 72 year old male with a past medical history of atrial fibrillation not on anticoagulation, hypertension, who presents to [facility] due to pain under his left breast.? Patient tells me that he was diagnosed with A-fib when he had eye surgery, he was asymptomatic, he did not take any blood thinners or any medications, denies a history of CAD, no history of strokes, he tells me that he has had a stressful week, his sister is dying of liver cirrhosis, he is recently returned from a trip from [facility], no calf, calf swelling, hemoptysis, he started noticing pain under his left breast, radiating down the side, he tells me he has used up to 900 mg of ibuprofen for the pain last time he used this was yesterday evening, here in the emergency room he was diagnosed with A-fib with RVR Patient was admitted to [facility] for A-fib with RVR managed with Cardizem drip transition to oral Cardizem, managed with heparin drip, overall clinically improved, remains in A-fib, rate controlled patient will be discharged on Cardizem 60 every 6 hours with Eliquis 5 mg twice daily, monitor for bloody black stools or lightheadedness or chest palpitations if so go to emergency room For his chest discomfort, echocardiogram findings as below 1-Normal left ventricular size, systolic function and wall ?thickness, with no regional wall motion abnormalities.left ?ventricular ejection fraction is estimated at 55 %.? .Grade ?II/IV diastolic dysfunction, moderately elevated filling ?pressures. ?2- Moderately increased left atrial size. ?3-Severe aortic valve calcification. Moderate aortic valve ?stenosis, mean gradient 7.7 mmHg, KALEB 1.5 cm squared. Trace aortic ?valve regurgitation. ?4-Structurally normal mitral valve without significant stenosis ?or prolapse.? There is mild mitral regurgitation.? ?5-There is no pericardial effusion. ?6-Right atrial pressure is around 5-10 mm of mercury. ?7-There are no prior echocardiogram studies to compare. -No significant wall motion abnormalities - no recurrent Chest pain -No significant delta troponin -Discharged on aspirin, statin with a follow-up with cardiology as outpatient for conssideration of stress testing Patient also had pain along his left rib, seen musculoskeletal nature had pain on palpation, discharged on Ultram as needed for pain avoid NSAIDs including ibuprofen, Aleve, naproxen For aortic valve stenosis follow-up with cardiology - For your atrial fibrillation please take Cardizem 60 mg every 12 hours -Please take Eliquis as prescribed -Eliquis is a very strong blood thinner, if you develop bloody or black stools or lightheadedness please go to emergency room -See your primary care provider to recheck hemoglobin in 1 week -For your diastolic CHF, if you develop lower extremity edema or increased shortness of breath, you can use Lasix 40 mg daily as needed with potassium 20 meqequivalents, I would use it for only 3 days in a row, if beyond 3 days you continue to feel short of breath go to the emergency room -If you develop chest pain please use nitroglycerin -Continue aspirin, statin -You can use tramadol as needed for left chest wall discomfort -If you have any chest pain go to the emergency room please see cardiology in the next few days -Please follow-up with cardiology for aortic valve stenosis follow-up -Please avoid all NSAIDs including but not limited to Aleve, naproxen, ibuprofen due to risk of bleeding Physical Exam Const: COMMON NORMALS: no acute distress and patient oriented x3 Resp: COMMON NORMALS: normal respiratory effort, No retractions, No use of accessory muscles and clear to auscultation bilaterally AUSCULTATION: clear to auscultation bilaterally Cardio: COMMON NORMALS: regular rate, S1 normal heart sound present and S2 normal heart sound present RATE: regular rate RHYTHM: abnormal rhythm irregularly irregular HEART SOUNDS: S1 normal heart sound present and S2 normal heart sound present GI: COMMON NORMALS: Normal to inspection, nondistended, normoactive bowel sounds present and non-tender Extremity: COMMON NORMALS: no pedal edema Neuro: COMMON NORMALS: patient oriented x3 Psych: COMMON NORMALS: mental status grossly normal Discharge Data Studies Completed and Pending Completed Studies During Hospitalization Category Date Time Status CTA chest [CT angio chest w abd pel w con] Stat Cat Scan 01/01/23 15:59 Completed XR chest 1V portable [id number] Stat Exams 01/01/23 15:01 Completed CV. echo complete* [id number] Routine Ultrasound 01/02/23 19:59 Completed Pending at discharge Category Date Time Status Complete Blood Count w/Auto AM LABS Lab 01/03/23 04:00 Ordered Complete Blood Count w/Auto AM LABS Lab 01/04/23 04:00 Ordered Comprehensive Metabolic Panel AM LABS Lab 01/03/23 04:00 Ordered Comprehensive Metabolic Panel AM LABS Lab 01/04/23 04:00 Ordered Magnesium AM LABS Lab 01/03/23 04:00 Ordered Magnesium AM LABS Lab 01/04/23 04:00 Ordered Phosphorus AM LABS Lab 01/03/23 04:00 Ordered Phosphorus AM LABS Lab 01/04/23 04:00 Ordered Radiology Impressions Chest X-Ray 01/01/23 15:01 IMPRESSION: Mild cardiomegaly and without acute findings or significant change with prior exam. Chest/Abdomen/Pelvis CT 01/01/23 15:59 IMPRESSION: 1. No CT findings to indicate pulmonary embolus. No findings thoracic aortic dissection. 2. Very small posterior pleural effusion mid and lower left chest and trace posterior pleural effusion lower right chest. Subjacent atelectasis within the lung bases, vkqe-khobwua-qrws-right. 3. Mild cardiomegaly and small pericardial effusion, along with coronary artery and aortic valve calcification. 4. Mild benign healed granulomatous disease change. IMPRESSION: 1. Mild atherosclerotic vascular calcification without abdominal aortic aneurysm. 2. Prostate gland is mildly prominent with a few calcifications and with mild indentation on the posteroinferior urinary bladder. 3. No acute findings otherwise. Laboratory Results WBC 10.5 10^3/uL (4.0-10.0) H 01/02/23 04:24 RBC 4.46 10^6/uL (4.1-5.3) 01/02/23 04:24 Hgb 14.0 g/dL (11.7-16.6) 01/02/23 04:24 Hct 44.1 % (42.0-52.0) 01/02/23 04:24 MCV 98.9 fl (80-94) H 01/02/23 04:24 MCH 31.4 pg (28.0-34.0) 01/02/23 04:24 MCHC 31.7 g/dL (30.0-36.0) 01/02/23 04:24 RDW 13.1 % (12.1-15.1) 01/02/23 04:24 Plt Count 146 10^3/cmm (130-400) 01/02/23 04:24 MPV 11.2 fL (7.4-10.4) H 01/02/23 04:24 Neut % (Auto) 71.6 % 01/02/23 04:24 Lymph % (Auto) 16.2 % 01/02/23 04:24 [place] % (Auto) 10.4 % 01/02/23 04:24 Eos % (Auto) 0.8 % 01/02/23 04:24 Baso % (Auto) 0.5 % 01/02/23 04:24 Neut # (Auto) 7.54 10^3/uL (1.8-7.7) 01/02/23 04:24 Lymph # (Auto) 1.7 10^3/uL (0.8-4.8) 01/02/23 04:24 [place] # (Auto) 1.1 10^3/uL (0.2-0.9) H 01/02/23 04:24 Eos # (Auto) 0.1 10^3/uL (0.0-0.8) 01/02/23 04:24 Baso # (Auto) 0.1 10^3/uL (0.0-0.1) 01/02/23 04:24 Nucleated RBC % (auto) 0 % 01/02/23 04:24 Nucleated RBCs # 0.0 /100WBC 01/02/23 04:24 ESR 18 mm/hr (0-10) H 01/01/23 15:29 APTT 59.4 SECONDS (23.9-36.7) H 01/02/23 11:40 D-Dimer 1.10 ug/mIFEU (0-0.59) H 01/01/23 15:29 Sodium 138 mmol/L (136-145) 01/02/23 04:24 Potassium 4.1 mmol/L (3.5-5.1) 01/02/23 04:24 Chloride 102 mmol/L (98-107) 01/02/23 04:24 Carbon Dioxide 22 mmol/L (22-29) 01/02/23 04:24 Anion Gap 18.1 (5-19) 01/02/23 04:24 BUN 16 mg/dL (8-23) 01/02/23 04:24 Creatinine 0.6 mg/dL (0.7-1.2) L 01/02/23 04:24 GFR Calculation Not Reportable 01/02/23 04:24 Glucose 116 mg/dL (65-115) H 01/02/23 04:24 POC Glucose 127 mg/dL (70-110) H 01/02/23 06:17 Estimat Average Glucose 111 01/01/23 15:29 Hemoglobin A1c 5.5 % (4.0-6.0) 01/01/23 15:29 Calculated Osmolality 288 mOsm/kg (285-295) 01/02/23 04:24 Calcium 8.6 mg/dL (8.5-10.5) 01/02/23 04:24 Phosphorus 3.6 mg/dL (2.5-4.5) 01/02/23 04:24 Magnesium 2.0 mg/dL (1.7-2.3) 01/02/23 04:24 Total Bilirubin 1.0 mg/dL (0.15-1.2) 01/02/23 04:24 AST 12 U/L (0-40) 01/02/23 04:24 ALT 14 U/L (0-41) 01/02/23 04:24 Alkaline Phosphatase 66 U/L (40-130) 01/02/23 04:24 Troponin T Baseline 10 ng/L (0-15) 01/01/23 15:29 Troponin T 120 Minute 9.58 ng/L (0-15) 01/01/23 17:59 Delta Troponin T -0.42 ABS# (0-10) L 01/01/23 17:59 Troponin T Hi Sens 6Hr 10.34 ng/L (0-15) 01/01/23 21:35 Troponin T Hi Sens 6Hr Delta 0.34 ng/L (0-12) 01/01/23 21:35 C-Reactive Protein 68.6 mg/L (0.0-4.9) H 01/01/23 17:59 NT-Pro-B Natriuret Pep 746 pg/mL (0-125) H 01/02/23 04:24 Total Protein 6.0 g/dL (6.6-8.7) L 01/02/23 04:24 Albumin 3.4 g/dL (3.5-5.2) L 01/02/23 04:24 Globulin 2.6 g/dL (1.3-4.6) 01/02/23 04:24 Triglycerides 55 mg/dL (0-150) 01/01/23 17:59 Cholesterol 152 mg/dL (0-200) 01/01/23 17:59 LDL Cholesterol, Calc 104 mg/dL (50-129) 01/01/23 17:59 HDL Cholesterol 37 mg/dL (60-100) L 01/01/23 17:59 LDL/HDL Ratio 2.81 RATIO (0.00-3.22) 01/01/23 17:59 Cholesterol/HDL Ratio 4.11 mg/dL (1.0-5.00) 01/01/23 17:59 TSH 0.84 uIU/mL (0.27-4.20) 01/01/23 17:59 Vitals Last Vital Signs Temp 98.4 F 01/02/23 11:34 Pulse 81 01/02/23 14:08 Resp 13 01/02/23 11:34 BP 109/82 01/02/23 11:34 Pulse Ox 93 01/02/23 11:34 O2 Del Method Room Air 01/02/23 11:34 Discharge Plan Discharge Condition: Stable Prescriptions: New tramadol 50 mg tablet 50 mg PO BID PRN (Reason: pain) 5 Days Qty: 10 0RF Eliquis 5 mg Tablet 5 mg PO Q12H 30 Days Qty: 60 0RF diltiazem HCl [Cardizem] 60 mg tablet 60 mg PO Q12H 30 Days Qty: 60 0RF furosemide [Lasix] 40 mg tablet 40 mg PO DAILY PRN (Reason: edema) 7 Days Qty: 7 0RF potassium chloride [Klor-Con M20] 20 mEq tablet,ER particles/crystals 20 meq PO DAILY PRN (Reason: Daily as needed with Lasix) 7 Days Qty: 7 0RF aspirin 81 mg capsule 81 mg PO DAILY 30 Days Qty: 30 0RF atorvastatin 40 mg tablet 40 mg PO DAILY 30 Days Qty: 30 0RF nitroglycerin 0.4 mg tablet, sublingual 0.4 mg sublingual Q5M PRN (Reason: chest pain) 30 Days Qty: 30 0RF Rx Instructions: do not exceed 3 doses per episode Continued omega-3 fatty acids [Fish Oil Concentrate] 1,000 mg Capsule 1,000 mg PO DAILY ascorbic acid (vitamin C) [Vitamin C] 500 mg Tablet 500 mg PO DAILY magnesium oxide 400 mg magnesium Tablet 400 mg PO DAILY Discontinued lisinopril 20 mg tablet 20 mg PO BID Discharge Orders: Discharge Order (Routine); Ordered 01/02/23 Ordered By: Lamine Laguna Referrals: Yeison Way MD [Physician] - Diann Ballesteros MD [Physician] - 4-7 days Discharge Diet: Cardiac Discharge Activity: Resume usual activity Patient Instructions: Opioid Safety Activity Restrictions/Additional Instructions: - For your atrial fibrillation please take Cardizem 60 mg every 12 hours -Please take Eliquis as prescribed -Eliquis is a very strong blood thinner, if you develop bloody or black stools or lightheadedness please go to emergency room -See your primary care provider to recheck hemoglobin in 1 week -For your diastolic CHF, if you develop lower extremity edema or increased shortness of breath, you can use Lasix 40 mg daily as needed with potassium 20 meqequivalents, I would use it for only 3 days in a row, if beyond 3 days you continue to feel short of breath go to the emergency room -If you develop chest pain please use nitroglycerin -Continue aspirin, statin -You can use tramadol as needed for left chest wall discomfort -If you have any chest pain go to the emergency room please see cardiology in the next few days -Please follow-up with cardiology for aortic valve stenosis follow-up -Please avoid all NSAIDs including but not limited to Aleve, naproxen, ibuprofen due to risk of bleeding Discharge Attestations Time Spent in Discharge Care*: greater than 30 min Quality Metrics Clinical Quality Measures [ No reported AMI, CVA or VTE this stay] Coding Level of Care Code 61295 Total time (in minutes) for Discharge: 45 Diagnoses Atrial fibrillation with RVR I48.91 Chest pain R07.9
[2023-01-02 15:32] VITALS: PULSE 81; RESP 16; TEMP 36.9; O2SAT 96
--- NOTE | 2023-01-02 19:59 | USCV_ITS ---
Jesus Yen Age: 72 Gender: M : 1950 Exam Date: 01/02/2023 12:19 Ordering Phys: Lamine Laguna MD Technologist: MICHAEL Exam Location: [facility] [place] Indication: afib BP: / HR: 83 Rhythm: Sinus Technical Quality: Adequate MEASUREMENTS (Male / Female) Normal Values 2D ECHO LV Diastolic Diameter PLAX 5.8 cm 4.2 - 5.9 / 3.9 - 5.3 cm LV Systolic Diameter PLAX 4.9 cm IVS Diastolic Thickness 0.9 cm 0.6 - 1.0 / 0.6 - 0.9 cm IVS Systolic Thickness 1.3 cm LVPW Diastolic Thickness 1.0 cm 0.6 - 1.0 / 0.6 - 0.9 cm LVPW Systolic Thickness 1.2 cm LVOT Diameter 2.4 cm LV Ejection Fraction 2D Teich 32.8 % LV Ejection Fraction MOD 2C 60.6 % LV Ejection Fraction 2C AL 60.2 % LA Diameter 4.9 cm IVC Diameter 2.5 cm M-MODE Aortic Annulus Diameter 3.0 cm LA Ao Ratio MM 1.9 MV E Point Septal Separation 0.9 cm DOPPLER AV Peak Velocity 202.0 cm/s LVOT Peak Velocity 73.0 cm/s AV Area Cont Eq vti 1.5 cm squared AV Area Cont Eq pk 1.7 cm squared MV Area PHT 4.0 cm squared MV E' Velocity 56.5 cm/s Mitral E to MV E' Ratio 11.8 Mitral E to LV E' Lateral Ratio 12.9 Mitral E to LV E' Septal Ratio 11.1 TR Peak Velocity 192.0 cm/s TR Peak Gradient 14.7 mmHg TV Peak E Velocity 49.0 cm/s Right Atrial Pressure 6.0 mmHg Pulmonary Artery Systolic Pressu 20.7 mmHg PV Peak Velocity 94.0 cm/s FINDINGS Left Ventricle Normal left ventricular size, systolic function and wall thickness, with no regional wall motion abnormalities.left ventricular ejection fraction is estimated at 55 %. .Grade II/IV diastolic dysfunction, moderately elevated filling pressures. Right Ventricle The right ventricle is normal in size and function. Right Atrium The right atrium is normal in size. Left Atrium Moderately increased left atrial size. Mitral Valve Structurally normal mitral valve without significant stenosis or prolapse. There is mild mitral regurgitation. Aortic Valve Severe aortic valve calcification. Moderate aortic valve stenosis, mean gradient 7.7 mmHg, KALEB 1.5 cm squared. Trace aortic valve regurgitation. Tricuspid Valve Structurally normal tricuspid valve without significant stenosis or regurgitation. Pulmonary artery systolic pressure is normal. Pulmonic Valve Structurally normal pulmonic valve without significant stenosis. There is no pulmonic regurgitation. Pericardium Normal pericardium without effusion. Aorta Normal ascending aorta dimension. IVC The inferior vena cava appears normal. CONCLUSIONS 1-Normal left ventricular size, systolic function and wall thickness, with no regional wall motion abnormalities.left ventricular ejection fraction is estimated at 55 %. .Grade II/IV diastolic dysfunction, moderately elevated filling pressures. 2- Moderately increased left atrial size. 3-Severe aortic valve calcification. Moderate aortic valve stenosis, mean gradient 7.7 mmHg, KALEB 1.5 cm squared. Trace aortic valve regurgitation. 4-Structurally normal mitral valve without significant stenosis or prolapse. There is mild mitral regurgitation. 5-There is no pericardial effusion. 6-Right atrial pressure is around 5-10 mm of mercury. 7-There are no prior echocardiogram studies to compare. Renetta Nelson MD (Electronically Signed) Final Date: 02 January 2023 14:10 S
--- NOTE | 2023-01-03 09:33 | PC.NURSE ---
This person was in contact with Pt's spouse. d/c follow-up appointment is scheduled 02/01/23 at 10:30A.M.
== END 2023-01-02 15:56 | disposition home or self-care (01) ==
LOC: ER 17:57 → CSU 19:27
PROVIDERS: Admitting Provider Family Medicine; Emergency Provider Emergency Medicine; PCP Nurse Practitioner Family; Visit Provider Family Medicine
DX: I48.91 Unspecified atrial fibrillation (principal); R07.81 Pleurodynia; I35.0 Nonrheumatic aortic (valve) stenosis; I10 Essential (primary) hypertension; Z79.1 Long term (current) use of non-steroidal anti-inflammatories (NSAID); R07.9 Chest pain, unspecified
CPT/HCPCS: 36415; 36416; 71045; 71275; 74177; 80053; 80061; 82962; 83036; 83735; 83880; 84100; 84443; 84484; 85025; 85378; 85651; 85730; 86140; 93005; 93306; 94664; 96365; 96366; 96375; 96376; 99285; 99291; C9113; G0378; J1644; J1940; J2270; J3490; J7040; Q9967

== ENCOUNTER 2023-01-15 09:49 | Emergency (ER) | payer MEDICARE, SELFPAY ==
[2023-01-15 09:54] VITALS: BP 141/96; PULSE 81; RESP 15; O2SAT 95
--- NOTE | 2023-01-15 10:11 | XRR_ITS ---
PROCEDURE INFORMATION: Exam: XR Chest Exam date and time: 01/15/2023 10:18 AM Age: 72 years old Clinical indication: Pain; Chest pressure; Additional info: Cp TECHNIQUE: Imaging protocol: Radiologic exam of the chest. Views: 1 view. COMPARISON: 1. CR (CHEST, ) 01/01/2023 3:[address] angio chest w abd pel w con 01/01/2023 5:01 PM 3. CR XR chest 1V portable [id number] 03/30/2022 3:21 PM FINDINGS: Lungs: Mild saes-othwmnk-ezoy-right basilar atelectasis. No consolidation. Pleural spaces: Small left pleural effusion. No pneumothorax. Heart/Mediastinum: Stable cardiomegaly. Bones/joints: Degenerative changes along the spine and shoulders. XR/XR chest 1V portable [id number] IMPRESSION: 1. Small left pleural effusion and basilar atelectasis. 2. Stable cardiomegaly.
--- NOTE | 2023-01-15 10:11 | ECG_ITS ---
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 Measurements Intervals [place] Rate: 92 P: 0 AR: 0 QRS: 29 QRSD: 86 T: 234 QT: 336 QTc: 417 Interpretive Statements ATRIAL FIBRILLATION WITH ABERRANT CONDUCTION OR VENTRICULAR PREMATURE COMPLEXES POSSIBLE ANTERIOR MYOCARDIAL INFARCTION , PROBABLY OLD [30 ms Q WAVE IN V3/V4, OR R < 0.2 mV IN V4] ABNORMAL RHYTHM ECG Compared to ECG 01/15/2023 10:01:22 T-wave abnormality no longer present Possible ischemia no longer present Myocardial infarct finding still present Electronically Signed On 01-16-2023 11:26:25 CDT by Zachery Mazariegos M.D. [id number]
--- NOTE | 2023-01-15 10:13 | ED_ITS ---
HPI - Chest Pain General: Chief Complaint: Chest Pain Stated Complaint: chest presure Time Seen by Provider: 01/15/23 09:54 Source: patient and family Mode of arrival: ambulatory Limitations: no limitations History of Present Illness: This patient presents to our emergency department because of chest discomfort. He states he has chest discomfort which seems to be in his left anterior chest and radiates up into his neck. He states he noted this last evening when he walked back [place] hill from the mailbox as well as earlier today. He states he has a history of atrial fibrillation and that was discovered in March of last year. He states he has been taking his Eliquis as well as his diltiazem. He did take a dose of Lasix as well last night. He denies any fevers chills cough shortness of breath ripping tearing chest pain etc. He has not smoked since 1976. He has had no history of ID. MD complaint: chest heaviness Associated symptoms: Deny abdominal pain, fever(s), nausea, syncope or vomiting Review of Systems Const: Denies: fever(s) or chills ENMT: Denies: throat pain or odynophagia Card: Reports: irregular heart rhythm; Denies: syncope or pre-syncope Resp: Denies: productive cough, non-productive cough, wheezing or stridor GI: Denies: abdominal pain, nausea or vomiting : Denies: flank pain, difficulty urinating, dysuria or urinary frequency Musc: Denies: neck pain, back pain, extremity pain or extremity swelling Skin/Breast: Denies: rash or pruritus Neuro: Denies: headache(s), numbness in extremities, weakness in extremities, Slurred speech present or difficulty communicating thoughts Psych: Denies: anxiety or depression PFSH ED PFSH: Medical History History of atrial fibrillation History of hypertension Surgical History No pertinent past surgical history Family History (Updated 01/01/23 @ 18:51 by Lamine Laguna MD) Mother Stroke Seizure Social History Smoking and tobacco status: never smoked Alcohol intake: never Substance/Drug Use: never Physical Exam Narrative: EXAM NARRATIVE: He appears to be in no acute distress healthy appearing makes good eye contact and speech is goal-directed. Const: COMMON NORMALS: no acute distress, average body habitus and patient oriented x3 GENERAL APPEARANCE: comfortable ORIENTATION/CONSCIOUSNESS: Yes awake HENMT: COMMON NORMALS: normocephalic, moist oral mucous membranes and oropharynx normal HEAD & SCALP: normocephalic Eye: COMMON NORMALS: Equal, round and reactive pupils present, EOMs intact bilaterally and conjunctivae normal CONJUNCTIVA: Yes conjunctivae normal PUPIL: Yes Equal, round and reactive pupils present Neck/C-Spine: COMMON NORMALS: full ROM, no lymphadenopathy, no JVD and No carotid bruits Chest: COMMONS NORMALS: normal inspection of the chest and normal palpation of entire chest wall Resp: COMMON NORMALS: normal respiratory effort, No retractions, No use of accessory muscles and clear to auscultation bilaterally EFFORT & INSPECTION: Yes able to speak in complete sentences AUSCULTATION: clear to auscultation bilaterally Cardio: COMMON NORMALS: no JVD, No murmurs present (Cardio) and Peripheral pulses 2+ throughout RHYTHM: abnormal rhythm irregularly irregular PERIPHERAL PULSES: Peripheral pulses 2+ throughout GI: COMMON NORMALS: Normal to inspection, nondistended, normoactive bowel sounds present, Soft to palpation and non-tender PALPATION: Yes Soft to palpation : COMMON NORMALS: Yes no CVA tenderness BLADDER/KIDNEY EXAM: Yes no CVA tenderness Back/Pelvis: COMMON NORMALS: no CVA tenderness, thoracic and lumbar spine normal to inspection, thoraco-lumbar ROM normal and straight leg raise negative bilaterally Extremity: COMMON NORMALS: normal to inspection, full ROM, capillary refill normal, no calf tenderness and no pedal edema Neuro: COMMON NORMALS: patient oriented x3, moves all extremities and no sensory deficits noted CRANIAL NERVES: Yes CN normal except as noted Psych: COMMON NORMALS: mental status grossly normal Skin: COMMON NORMALS: no rashes or lesions noted, no wounds and turgor normal GENERAL SKIN EXAM: no rashes or lesions noted and turgor normal Course Reevaluation(s): Reevaluation #1: Patient is remained stable while in the emergency department. Serial troponins are reassuring. BNP is slightly elevated which is consistent with his cardiomegaly as well as atrial fibrillation. Certainly no evidence of ACS etc. at this time. I think he is getting rate related discomfort and associated dyspnea. We will go ahead and plan on increasing his diltiazem to 90 mg twice daily. This was discussed in detail with both patient, spouse, son who is present. Stable to be discharged at this time. Time: 13:13 Vital Signs: Vital signs: Vital Signs Pulse Rate 88 01/15/23 11:39 Respiratory Rate 20 H 01/15/23 11:39 Blood Pressure 141/96 01/15/23 11:39 Pulse Oximetry 96 01/15/23 11:39 Oxygen Delivery Me thod Room Air 01/15/23 11:39 MDM - Chest Pain Medical Decision Making Patient with a known history of atrial fibrillation who been previously diagnosed and is on Eliquis for stroke prevention has been doing relatively well without rate control however was noted last month to have rapid ventricular response and was started on a low-dose of diltiazem. He has been experiencing occasional episodes of where he feels breathless with greater than normal activity and also some sensation of pressure in his anterior chest up into his neck. Because of this he presented to the emergency department for reevaluation. Initial evaluation noted A-fib with a rapid ventricular response. Work-up was initiated to ensure no evidence of ACS or decompensated heart failure etc. Hilaria ent received a infusion of magnesium sulfate while work-up was ongoing. Serial EKGs initially showed rapid ventricular response however this slowed to a controlled ventricular response later on in the visit without any ischemic changes. Serial troponins are reassuring. Chest x-ray revealed changes consistent with his underlying disorder and his BNP also reflected that which would normally expect with mild cardiomegaly and chronic atrial fibrillation. He remained stable and controlled and his ventricular response after treatment in the emergency department. No evidence of other ongoing emergent emergency medical condition or instability at this time. No evidence of ACS. I think the patient is experiencing intermittent episodes of rapid ventricular response contributing to his current presentation given the findings today. We will go ahead and increase his diltiazem to 90 mg twice daily. He has a cardiology follow-up later this month. Discussed findings and their limitations and return precautions with patient and family. Medical Records I reviewed the patient's medical records. Lab Data I reviewed the patient's lab results. 01/15/23 10:02 01/15/23 10:02 Radiology Impressions Chest X-Ray 01/15/23 10:11 IMPRESSION: 1. Small left pleural effusion and basilar atelectasis. 2. Stable cardiomegaly. Laboratory Results WBC 10.5 10^3/uL (4.0-10.0) H 01/15/23 10:02 RBC 4.78 10^6/uL (4.1-5.3) 01/15/23 10:02 Hgb 15.2 g/dL (11.7-16.6) 01/15/23 10:02 Hct 45.8 % (42.0-52.0) 01/15/23 10:02 MCV 95.8 fl (80-94) H 01/15/23 10:02 MCH 31.8 pg (28.0-34.0) 01/15/23 10:02 MCHC 33.2 g/dL (30.0-36.0) 01/15/23 10:02 RDW 12.4 % (12.1-15.1) 01/15/23 10:02 Plt Count 260 10^3/cmm (130-400) 01/15/23 10:02 MPV 10.8 fL (7.4-10.4) H 01/15/23 10:02 Neut % (Auto) 75.3 % 01/15/23 10:02 Lymph % (Auto) 13.1 % 01/15/23 10:02 Menard % (Auto) 9.9 % 01/15/23 10:02 Eos % (Auto) 0.7 % 01/15/23 10:02 Baso % (Auto) 0.5 % 01/15/23 10:02 Neut # (Auto) 7.91 10^3/uL (1.8-7.7) H 01/15/23 10:02 Lymph # (Auto) 1.4 10^3/uL (0.8-4.8) 01/15/23 10:02 Menard # (Auto) 1.0 10^3/uL (0.2-0.9) H 01/15/23 10:02 Eos # (Auto) 0.1 10^3/uL (0.0-0.8) 01/15/23 10:02 Baso # (Auto) 0.1 10^3/uL (0.0-0.1) 01/15/23 10:02 Nucleated RBC % (auto) 0 % 01/15/23 10:02 Nucleated RBCs # 0.0 /100WBC 01/15/23 10:02 Sodium 137 mmol/L (136-145) 01/15/23 10:02 Potassium 4.2 mmol/L (3.5-5.1) 01/15/23 10:02 Chloride 97 mmol/L (98-107) L 01/15/23 10:02 Carbon Dioxide 29 mmol/L (22-29) 01/15/23 10:02 Anion Gap 15.2 (5-19) 01/15/23 10:02 BUN 15 mg/dL (8-23) 01/15/23 10:02 Creatinine 0.7 mg/dL (0.7-1.2) 01/15/23 10:02 GFR Calculation Not Reportable 01/15/23 10:02 Glucose 105 mg/dL (65-115) 01/15/23 10:02 Calculated Osmolality 285 mOsm/kg (285-295) 01/15/23 10:02 Calcium 9.6 mg/dL (8.5-10.5) 01/15/23 10:02 Magnesium 2.0 mg/dL (1.7-2.3) 01/15/23 10:02 Troponin T Baseline 11 ng/L (0-15) 01/15/23 10:02 Troponin T 120 Minute 9.52 ng/L (0-15) 01/15/23 12:01 Delta Troponin T -1.48 ABS# (0-10) L 01/15/23 12:01 NT-Pro-B Natriuret Pep 639 pg/mL (0-125) H 01/15/23 10:02 EKG Data EKG 1: I personally reviewed and interpreted this EKG as follows: Interpretation: Initial resting EKG reveals a ventricular rate of 121 bpm consistent with atrial fibrillation with rapid ventricular response. Occasional unifocal PVC is also noted. He has poor R wave progression anteriorly. He also has nonspecific ST-T wave changes likely rate related. EKG 2: I personally reviewed and interpreted this EKG as follows: Interpretation: Second EKG this visit reveals a ventricular rate of 92 bpm. Consistent with atrial fibrillation with a controlled ventricular response. Occasional unifocal PVCs noted. Poor R wave progression previously noted. Nonspecific ST-T wave changes noted on first EKG have now resolved. Discharge Plan Discharge Patient Disposition: Home Clinical Impression: Atrial fibrillation, chronic Condition: Stable Prescriptions: New diltiazem HCl 90 mg capsule,extended release 12 hr 90 mg PO BID Qty: 60 1RF No Action omega-3 fatty acids 1,000 mg Capsule 1,000 mg PO DAILY ascorbic acid (vitamin C) [Vitamin C] 500 mg Tablet 500 mg PO DAILY magnesium oxide 400 mg magnesium Tablet 400 mg PO DAILY Eliquis 5 mg Tablet 5 mg PO Q12H 30 Days Qty: 60 0RF diltiazem HCl [Cardizem] 60 mg tablet 60 mg PO Q12H 30 Days Qty: 60 0RF nitroglycerin 0.4 mg tablet, sublingual 0.4 mg sublingual Q5M PRN (Reason: chest pain) 30 Days Qty: 30 0RF Rx Instructions: do not exceed 3 doses per episode Vitamin D3 25 mcg (1,000 unit) Capsule 25 mcg PO DAILY aspirin 81 mg capsule 81 mg PO DAILY PRN (Reason: Pain) Discharge Orders: Discharge ED (Routine); Ordered 01/15/23 Ordered By: Markel Erickson Referrals: Demetra Whelan APN [Primary Care Provider] - Discharge Diet: Low Salt Discharge Activity: Increase activity as tolerated Patient Instructions: Opioid Safety, Pain Management Activity Restrictions/Additional Instructions: As we discussed there was no evidence of a heart attack or other serious condition other than your chronic atrial fibrillation while you are in the emergency department. We think that some of your symptoms are likely related to your heart rate going too fast and we have recommended increasing your diltiazem (Cardizem) to 90 mg twice a daily. We have written a new prescription to reflect that change but in the meantime you may cut your 60 mg tablets into and take 1-1/2 of those twice daily until they run out. If you develop any sustained chest pain or other concerns please return to this or the nearest emergency department. Continue all your other usual medications. Follow-up with Dr. Montana later this month as scheduled. Coding Level of Care Code ED Travel Attendants for Julio C Quiroz
[2023-01-15 10:24] LABS: Basophils # 0.1 10^3/uL (0.0-0.1); Basophils % 0.5 %; Eosinophils # 0.1 10^3/uL (0.0-0.8); Eosinophils % 0.7 %; Hematocrit 45.8 % (42.0-52.0); Hemoglobin 15.2 g/dL (11.7-16.6); Lymphocytes # 1.4 10^3/uL (0.8-4.8); Lymphocytes % 13.1 %; Mean Corpuscular HGB Conc 33.2 g/dL (30.0-36.0); Mean Corpuscular Hemoglobin 31.8 pg (28.0-34.0); Mean Corpuscular Volume 95.8 fl (80-94); Mean Platelet Volume 10.8 fL (7.4-10.4); Monocytes % 9.9 %; Neutrophils # 7.91 10^3/uL (1.8-7.7); Neutrophils % 75.3 %; Nucleated Red Blood Cells % 0 %; Platelet Count 260 10^3/cmm (130-400); Red Blood Count 4.78 10^6/uL (4.1-5.3); Red Cell Distribution Width 12.4 % (12.1-15.1); White Blood Count 10.5 10^3/uL (4.0-10.0)
[2023-01-15] MEDS: magnesium sulfate premix 2 GM/50 ML PIGGYBACK IV (10:30)
[2023-01-15 10:43] LABS: Troponin(5th) Baseline 11 ng/L (0-15)
[2023-01-15 10:53] LABS: Anion Gap 15.2 (5-19); Blood Urea Nitrogen 15 mg/dL (8-23); Calcium 9.6 mg/dL (8.5-10.5); Carbon Dioxide 29 mmol/L (22-29); Chloride 97 mmol/L (98-107); Glucose 105 mg/dL (65-115); NT Pro B Type Natriuretic Pept 639 pg/mL (0-125); Osmolality Calculated 285 mOsm/kg (285-295); Potassium 4.2 mmol/L (3.5-5.1); Sodium 137 mmol/L (136-145)
[2023-01-15 11:39] VITALS: BP 141/96; PULSE 88; RESP 20; O2SAT 96
--- NOTE | 2023-01-15 12:11 | ECG_ITS ---
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 Measurements Intervals [place] Rate: 121 P: 0 RI: 0 QRS: 33 QRSD: 81 T: 232 QT: 280 QTc: 398 Interpretive Statements ATRIAL FIBRILLATION WITH RAPID VENTRICULAR RESPONSE WITH ABERRANT CONDUCTION OR VENTRICULAR PREMATURE COMPLEXES POSSIBLE ANTERIOR MYOCARDIAL INFARCTION , PROBABLY OLD [30 ms Q WAVE IN V3/V4, OR R < 0.2 mV IN V4] MODERATE T-WAVE ABNORMALITY, CONSIDER INFERIOR ISCHEMIA [-0.1+ mV T-WAVE IN II/aVF] Compared to ECG 01/01/2023 20:42:33 Ventricular premature complex(es) now present Aberrant conduction of supraventricular beat(s) now present Myocardial infarct finding now present Possible ischemia now present T-wave abnormality still present Electronically Signed On 01-16-2023 11:34:41 CDT by Zachery Mazariegos M.D. [email or web address].[employer]/store/[id number]
[2023-01-15 13:00] VITALS: BP 141/87; PULSE 86; RESP 16; O2SAT 97
[2023-01-15 13:04] LABS: Troponin 5 2HR 9.52 ng/L (0-15); Troponin 5 2HR Delta -1.48 ABS# (0-10)
== END 2023-01-15 13:35 | disposition home or self-care (01) ==
PROVIDERS: Emergency Provider Emergency Medicine; PCP Nurse Practitioner Family
DX: I48.20 Chronic atrial fibrillation, unspecified (principal); Z79.82 Long term (current) use of aspirin; Z79.01 Long term (current) use of anticoagulants; I10 Essential (primary) hypertension
CPT/HCPCS: 36415; 71045; 80048; 83735; 83880; 84484; 85025; 93005; 96374; 99285; J3475

== ENCOUNTER → 2023-02-01 10:05 | Outpatient (BNVA) | payer MEDICARE, SELFPAY | PROVIDERS: PCP Nurse Practitioner Family; Visit Provider Internal Medicine Cardiovascular Disease | DX: R07.9 Chest pain, unspecified (principal); E66.9 Obesity, unspecified; Z68.32 Body mass index [BMI] 32.0-32.9, adult; I48.91 Unspecified atrial fibrillation; Z79.01 Long term (current) use of anticoagulants; I10 Essential (primary) hypertension; Z87.891 Personal history of nicotine dependence | CPT/HCPCS: 99204 ==

== ENCOUNTER 2023-02-18 07:08 | Outpatient (CLI) | payer MEDICARE, SELFPAY ==
[2023-02-18 07:23] VITALS: BMI 32.1
--- NOTE | 2023-02-18 07:24 | NMCV_ITS ---
NM cornelius perf SPECT r/s* [id number] Jesus Yen Age: 72 Gender: M : 1950 Exam Date: 02/18/2023 08:02 Ordering Phys: Diann Ballesteros MD ([email or web address]) Technologist: WAI Payton Exam Location: [facility] Indications: CHEST PAIN, SHORTNESS OF BREATH STRESS TEST Please see separate stress test report in [facility] for full findings IMAGE PROTOCOL Rest/Stress 1 Lexiscan Day Radiopharmaceutical Dose (mCi) Administration Site Administered by Rest: Tc-99m 10.8 IV Kevin Kahn, AUDIO VISUAL PROJECT MANAGER Sestamibi Stress:Tc-99m 32.8 IV Kevin Kahn, AUDIO VISUAL PROJECT MANAGER Sestamibi Rest: 18-Feb-2023 60 Discovery 630 Stress: 18-Feb-2023 30 Discovery 630 0.4mg Lexiscan. Images obtained in supine and prone position. SPECT RESULTS Technical Quality: Excellent Raw Data Analysis: Normal Image Corrections: No attenuation or motion correction applied Summed Stress Score: 3 Summed Rest Score: 0 Summed Difference Score: 3 PERFUSION FINDINGS Small sized perfusion abnormality of mild severity of apical anterior and apical lateral ferrari. FUNCTIONAL RESULTS (calculated via Gated SPECT) Stress Image LV EF (%): 56 Stress EDV (mL):144 TID: 1.06 Stress ESV (mL):64 FUNCTIONAL FINDINGS: The left ventricle is normal in size. Transient Ischemia Dilatation of 1.1. The left ventricular ejection fraction is normal with a value of 56%. There is normal left ventricular wall thickening. IMPRESSIONS 1. Small sized reversible perfusion abnormality of mild severity of apical anterior and apical lateral ferrari. 2. This may represent small area of ischemia in left anterior descending artery territory. 3. Overall left ventricular systolic function is normal without regional wall motion abnormalities, LVEF=56%. 4. No Lexiscan induced EKG changes. Refer to separate report for details. 5. Scan indicates low risk for cardiac events. Diann Ballesteros MD (Electronically Signed) Final Date: 19 February 2023 12:21 S
--- NOTE | 2023-02-18 07:24 | ECG_ITS ---
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 Interpretive Statements NAME OF STUDY: LEXISCAN SESTAMIBI STRESS TEST INDICATION: Chest Pain; Dyspnea on Exertion PROCEDURE: At the baseline, the blood pressure was 126/82 mmHg with a heart rate of 83 bpm. The electrocardiogram showed atrial fibrillation, normal axis. Poor anterior R wave progression. Nonspecific ST-T wave changes. The Lexiscan was infused over a period of 20 seconds. A total of 0.4 milligrams of Lexiscan was infused. The stress phase was continued for a total of 5 minutes. Heart rate at the end of the stress phase was 92 bpm with a blood pressure of 121 over 85 mm Hg. The EKG at the peak infusion revealed no significant ST-T wave changes. Isolated PVCs noted during Lexiscan infusion. Sestamibi was injected 20 seconds after the Lexiscan infusion. Blood pressure at the end of the recovery phase was 114/82 mmHg with a heart rate of 103 beats per minute. CONCLUSION: 1. No significant EKG changes with the LexiScan infusion. 2. No LexiScan induced chest pain or cardiac arrhythmia. 3. Normal blood pressure and heart rate response. 4. Sestamibi/sestamibi perfusion scan pending; see separate report. Electronically Signed On 02-19-2023 12:23:43 CDT by Diann Ballesteros M.D. [email or web address]/[facility].O[employer]/store/[id number]
[2023-02-18] MEDS: regadenoson 0.4 Mg/5 ml Syringe IVP (08:43)
[2023-02-18 08:58] VITALS: BP 114/82; PULSE 90
== END 2023-02-18 07:09 | disposition home or self-care (01) ==
PROVIDERS: PCP Family Medicine; Visit Provider Internal Medicine Cardiovascular Disease
DX: R07.9 Chest pain, unspecified (principal); R06.02 Shortness of breath
CPT/HCPCS: 36415; 78452; 93017; 96374; A9500; J2785

== ENCOUNTER 2023-03-01 13:02 | Inpatient (IN) | payer MEDICARE, SELFPAY ==
[2023-03-01] VITALS (7 sets, daily range): BP systolic 117–133; BP diastolic 77–101; PULSE 64–101; RESP 16–17; TEMP 36.4; O2SAT 93–98; BMI 32.5
--- NOTE | 2023-03-01 13:06 | ECG_ITS ---
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 Measurements Intervals [place] Rate: 77 P: 0 [place]: 0 QRS: 7 QRSD: 82 T: 153 QT: 363 QTc: 413 Interpretive Statements ATRIAL FIBRILLATION WITH ABERRANT CONDUCTION OR VENTRICULAR PREMATURE COMPLEXES POSSIBLE ANTERIOR MYOCARDIAL INFARCTION , PROBABLY OLD [30 ms Q WAVE IN V3/V4, OR R < 0.2 mV IN V4] ABNORMAL RHYTHM ECG Compared to ECG 01/15/2023 11:43:32 No significant changes Electronically Signed On 03-01-2023 21:11:20 CDT by Megan Coatse M.D. [id number]
--- NOTE | 2023-03-01 13:27 | XRR_ITS ---
PROCEDURE INFORMATION: Exam: XR Chest Exam date and time: 03/01/2023 1:35 PM Age: 72 years old Clinical indication: Pain; Angina pectoris; Additional info: Chest pain TECHNIQUE: Imaging protocol: Radiologic exam of the chest. Views: 1 view. COMPARISON: CR (CHEST, ) 01/15/2023 10:18 AM FINDINGS: Lungs: Unremarkable. No consolidation. Pleural spaces: Unremarkable. No pleural effusion. No pneumothorax. Heart/Mediastinum: Stable cardiomegaly. Bones/joints: Degenerative changes along the spine and acromioclavicular joints. XR/XR chest 1V portable [id number] IMPRESSION: 1. No acute findings. 2. Stable cardiomegaly.
[2023-03-01 13:49] LABS: Basophils # 0.1 10^3/uL (0.0-0.1); Basophils % 0.5 %; Eosinophils # 0.1 10^3/uL (0.0-0.8); Eosinophils % 0.7 %; Hematocrit 43.3 % (37-53); Lymphocytes # 1.6 10^3/uL (0.8-4.8); Lymphocytes % 16.7 %; Mean Corpuscular Volume 93.9 fl (82-101); Mean Platelet Volume 11.2 fL (7.4-10.4); Monocytes % 10.2 %; Neutrophils # 6.74 10^3/uL (1.8-7.7); Neutrophils % 71.7 %; Nucleated Red Blood Cells % 0 %; Platelet Count 139 10^3/cmm (157-399); Red Blood Count 4.61 10^6/uL (3.85-5.65); Red Cell Distribution Width 13.4 % (12.1-15.1); White Blood Count 9.41 10^3/uL (3.29-11.43)
[2023-03-01 14:09] LABS: Alanine Aminotransferase 22 U/L (0-41); Albumin Level 3.5 g/dL (3.5-5.2); Alkaline Phosphatase 78 U/L (40-130); Anion Gap 11.1 (5-19); Aspartate Amino Transferase 20 U/L (0-40); Blood Urea Nitrogen 22 mg/dL (8-23); Calcium 8.5 mg/dL (8.5-10.5); Carbon Dioxide 25 mmol/L (22-29); Chloride 104 mmol/L (98-107); Globulin 3.3 g/dL (1.3-4.6); Glucose 93 mg/dL (65-115); Osmolality Calculated 285 mOsm/kg (285-295); Potassium 4.1 mmol/L (3.5-5.1); Sodium 136 mmol/L (136-145); Total Bilirubin 0.5 mg/dL (0.15-1.2); Total Protein 6.8 g/dL (6.6-8.7)
[2023-03-01 14:10] LABS: Troponin(5th) Baseline 8 ng/L (0-15)
[2023-03-01] MEDS: nitroglycerin 0.4 mg sublingual Tablet SUBLINGUAL (14:31)
[2023-03-01 14:59] LABS: NT Pro B Type Natriuretic Pept 653 pg/mL (0-125)
--- NOTE | 2023-03-01 16:06 | ECG_ITS ---
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 Measurements Intervals [place] Rate: 64 P: 0 FL: 0 QRS: -2 QRSD: 92 T: 118 QT: 405 QTc: 420 Interpretive Statements ATRIAL FIBRILLATION LOW QRS VOLTAGE IN PRECORDIAL LEADS [QRS DEFLECTION < 1.0 mV IN CHEST LEADS] POSSIBLE ANTERIOR MYOCARDIAL INFARCTION , OF INDETERMINATE AGE [30 ms Q WAVE IN V3/V4, OR R < 0.2 mV IN V4] Compared to ECG 03/01/2023 13:10:01 Low QRS voltage now present Ventricular premature complex(es) no longer present Aberrant conduction of supraventricular beat(s) no longer present Myocardial infarct finding still present Electronically Signed On 03-01-2023 21:18:46 CDT by Megan Coates M.D. [id number]
[2023-03-01 16:59] LABS: Troponin 5 2HR 7.11 ng/L (0-15); Troponin 5 2HR Delta -0.89 ABS# (0-10)
--- NOTE | 2023-03-01 17:41 | ED_ITS ---
HPI - Chest Pain General: Chief Complaint: Chest Pain Stated Complaint: sent by kelsy/chest pain Time Seen by Provider: 03/01/23 14:03 History of Present Illness: This patient is a 72-year-old white male who presents to the emergency department with chest pain. He states the chest pain started last night and has been continuous. He currently rates it a 3 on a scale of 1-10. Does describe it as a slight pressure sensation. No associated shortness of breath. No nausea or vomiting. No diaphoresis. Patient states he had an abnormal cardiac stress test done 1 week ago. He did contact Dr. Ballesteros his tamping machine operator who recommended he come into the emergency department for evaluation. Review of Systems General: Reports: 10 or more systems reviewed and unremarkable except in HPI and below Card: Reports: chest pain [facility] ED PFSH: Medical History (Updated 02/22/23 @ 13:14 by Ron Mann DO) History of atrial fibrillation History of hypertension Surgical History (Updated 02/06/23 @ 19:10 by Diann Ballesteros MD) No pertinent past surgical history S/P cataract surgery Family History Mother Stroke Seizure Grandfather Myocardial infarction Family/Other Stroke Hypertension Social History Smoking and tobacco status: former smoker Alcohol intake: never Substance/Drug Use: never Physical Exam Const: COMMON NORMALS: no acute distress, patient oriented x3 and healthy appearing HENMT: COMMON NORMALS: normocephalic HEAD & SCALP: normocephalic Eye: COMMON NORMALS: Equal, round and reactive pupils present, EOMs intact b ilaterally and conjunctivae normal CONJUNCTIVA: Yes conjunctivae normal PUPIL: Yes Equal, round and reactive pupils present Neck/C-Spine: COMMON NORMALS: full ROM, no lymphadenopathy, supple, no JVD and No carotid bruits Chest: COMMONS NORMALS: normal inspection of the chest Resp: COMMON NORMALS: normal respiratory effort Cardio: COMMON NORMALS: no JVD and regular rate RATE: regular rate RHYTHM: abnormal rhythm irregularly irregular GI: COMMON NORMALS: Normal to inspection, nondistended, normoactive bowel sounds present Extremity: COMMON NORMALS: normal to inspection and no pedal edema Neuro: COMMON NORMALS: patient oriented x3, CN's II-XII intact bilaterally, moves all extremities and no focal motor deficits Skin: COMMON NORMALS: no rashes or lesions noted GENERAL SKIN EXAM: no rashes or lesions noted Course Vital Signs: Vital signs: Vital Signs Temperature 97.5 F L 03/01/23 13:12 Pulse Rate 73 03/01/23 14:16 Respiratory Rate 16 03/01/23 13:12 Blood Pressure 121/83 03/01/23 13:12 Pulse Oximetry 98 03/01/23 14:16 Oxygen Delivery Me thod Room Air 03/01/23 14:16 MDM - Chest Pain Medical Decision Making 72-year-old white male with chest pain with abnormal cardiac stress test 1 week ago. He was given 1 sublingual nitroglycerin tablet in the emergency department which did not alleviate the discomfort. I did order morphine which he declined. I discussed case with Dr. Coates, tamping machine operator on-call for Dr. Ballesteros. He does recommend admission. I then discussed the case with Dr. Lagunas, hospitalist. He did accept the admission. Patient will be transferred to the floor shortly. He is stable. Lab Data 03/01/23 13:40 03/01/23 13:40 Radiology Impressions Chest X-Ray 03/01/23 13:27 IMPRESSION: 1. No acute findings. 2. Stable cardiomegaly. Laboratory Results WBC 9.41 10^3/uL (3.29-11.43) 03/01/23 13:40 RBC 4.61 10^6/uL (3.85-5.65) 03/01/23 13:40 Hgb 14.30 g/dL (11.27-16.99) 03/01/23 13:40 Hct 43.3 % (37-53) 03/01/23 13:40 MCV 93.9 fl (82-101) 03/01/23 13:40 MCH 31.0 pg (27-33) 03/01/23 13:40 MCHC 33.0 g/dL (30-55) 03/01/23 13:40 RDW 13.4 % (12.1-15.1) 03/01/23 13:40 Plt Count 139 10^3/cmm (157-399) L 03/01/23 13:40 MPV 11.2 fL (7.4-10.4) H 03/01/23 13:40 Neut % (Auto) 71.7 % 03/01/23 13:40 Lymph % (Auto) 16.7 % 03/01/23 13:40 [place] % (Auto) 10.2 % 03/01/23 13:40 Eos % (Auto) 0.7 % 03/01/23 13:40 Baso % (Auto) 0.5 % 03/01/23 13:40 Neut # (Auto) 6.74 10^3/uL (1.8-7.7) 03/01/23 13:40 Lymph # (Auto) 1.6 10^3/uL (0.8-4.8) 03/01/23 13:40 [place] # (Auto) 1.0 10^3/uL (0.2-0.9) H 03/01/23 13:40 Eos # (Auto) 0.1 10^3/uL (0.0-0.8) 03/01/23 13:40 Baso # (Auto) 0.1 10^3/uL (0.0-0.1) 03/01/23 13:40 Nucleated RBC % (auto) 0 % 03/01/23 13:40 Nucleated RBCs # 0.0 /100WBC 03/01/23 13:40 Sodium 136 mmol/L (136-145) 03/01/23 13:40 Potassium 4.1 mmol/L (3.5-5.1) 03/01/23 13:40 Chloride 104 mmol/L (98-107) 03/01/23 13:40 Carbon Dioxide 25 mmol/L (22-29) 03/01/23 13:40 Anion Gap 11.1 (5-19) 03/01/23 13:40 BUN 22 mg/dL (8-23) 03/01/23 13:40 Creatinine 0.9 mg/dL (0.7-1.2) 03/01/23 13:40 GFR Calculation Not Reportable 03/01/23 13:40 Glucose 93 mg/dL (65-115) 03/01/23 13:40 Calculated Osmolality 285 mOsm/kg (285-295) 03/01/23 13:40 Calcium 8.5 mg/dL (8.5-10.5) 03/01/23 13:40 Total Bilirubin 0.5 mg/dL (0.15-1.2) 03/01/23 13:40 AST 20 U/L (0-40) 03/01/23 13:40 ALT 22 U/L (0-41) 03/01/23 13:40 Alkaline Phosphatase 78 U/L (40-130) 03/01/23 13:40 Troponin T Baseline 8 ng/L (0-15) 03/01/23 13:40 Troponin T 120 Minute 7.11 ng/L (0-15) 03/01/23 16:07 Delta Troponin T -0.89 ABS# (0-10) L 03/01/23 16:07 NT-Pro-B Natriuret Pep 653 pg/mL (0-125) H 03/01/23 13:40 Total Protein 6.8 g/dL (6.6-8.7) 03/01/23 13:40 Albumin 3.5 g/dL (3.5-5.2) 03/01/23 13:40 Globulin 3.3 g/dL (1.3-4.6) 03/01/23 13:40 All radiology interpretation(s) finalized by discharge Discharge Plan Discharge Condition: Stable Prescriptions: No Action nitroglycerin 0.4 mg tablet, sublingual 0.4 mg sublingual Q5M PRN (Reason: chest pain) Qty: 30 3RF Rx Instructions: do not exceed 3 doses per episode Eliquis 5 mg tablet 5 mg PO BID Qty: 180 2RF diltiazem HCl 240 mg capsule,extended release 24 hr 240 mg PO DAILY Qty: 30 3RF omega-3 fatty acids 1,000 mg Capsule 1,000 mg PO DAILY ascorbic acid (vitamin C) [Vitamin C] 500 mg Tablet 500 mg PO DAILY magnesium oxide 400 mg magnesium Tablet 400 mg PO DAILY zinc acetate 50 mg (zinc) Capsule 50 mg PO DAILY cholecalciferol (vitamin D3) [Vitamin D3] 25 mcg (1,000 unit) Capsule 25 mcg PO DAILY Referrals: Ron Mann DO [Primary Care Provider] - Coding Level of Care Code ED Director Bioinformatics for [facility]
[2023-03-01 18:03] LABS: D Dimer 0.42 ug/mLFEU (0-0.59)
--- NOTE | 2023-03-01 18:57 | PM.HP ---
Providers/Chief Complaint Admitting Physician: Juanito Lagunas Primary Care Provider: Ron Mann DO Chief Complaint: sent by kelsy/chest pain History of Present Illness Jesus Yen is a 72 year old gentleman with history of abnormal stress test earlier this month, with small area of reversible ischemia in territory of LAD, former smoker but quit in the , started creasing chest pain last night and was urged to come in for assessment by his document control assistant when he contacted her. Although overall symptoms have improved, he still is having some mild pressure in the left side. He symptoms did not respond to nitroglycerin. He states symptoms are somewhat worse with deep inspiration. Denies cough or shortness of breath. D-dimer noted to WNL. He is on Eliquis due to history of atrial fibrillation. Chest x-ray without acute findings, stable cardiomegaly. Review of Systems Const: Denies: fever(s), chills, body aches or malaise ENMT: Denies: throat pain or oral sores Card: Reports: chest pain; Denies: edema, pre-syncope or dyspnea on exertion Resp: Denies: dyspnea, productive cough, change in phlegm color or hemoptysis GI: Denies: abdominal pain, nausea, vomiting, diarrhea, constipation, hematochezia or melena : Denies: flank pain, difficulty urinating, urinary frequency or hematuria Musc: Denies: back pain, joint swelling or joint redness Skin/Breast: Denies: rash or new lesions Medications/Allergies Home Medications Medication Instructions Recorded Confirmed Last Taken Type ascorbic acid (vitamin C) 500 mg 500 mg PO DAILY 03/30/22 03/01/23 02/28/23 History tablet (Vitamin C) magnesium oxide 400 mg PO DAILY 03/30/22 03/01/23 02/28/23 History omega-3 fatty acids 1,000 mg 1,000 mg PO DAILY 03/30/22 03/01/23 02/28/23 History capsule cholecalciferol (vitamin D3) 25 25 mcg PO DAILY 01/15/23 03/01/23 02/28/23 History mcg (1,000 unit) capsule (Vitamin D3) apixaban 5 mg tablet (Eliquis) 5 mg PO BID #180 tabs 02/01/23 03/01/23 03/01/23 Rx nitroglycerin 0.4 mg sublingual 0.4 mg sublingual Q5M PRN chest 02/01/23 03/01/23 Unknown Rx tablet pain #30 tabs diltiazem HCl 240 mg capsule,24 240 mg PO DAILY #30 caps 02/22/23 03/01/23 03/01/23 Rx hr,extended release zinc acetate 50 mg (zinc) capsule 50 mg PO DAILY 03/01/23 03/01/23 02/28/23 History Allergies Allergy/AdvReac Type Severity Reaction Status Date / Time No Known Allergies Allergy Verified 03/01/23 11:56 PFSH Acute PFSH: Medical History History of atrial fibrillation History of hypertension Surgical History No pertinent past surgical history S/P cataract surgery Family History Mother Stroke Seizure Grandfather Myocardial infarction Family/Other Stroke Hypertension Social History Smoking and tobacco status: former smoker Alcohol intake: never Substance/Drug Use: never Vitals/I&O/Wt Last Vital Signs Temp 97.5 F L 03/01/23 13:12 Pulse 72 03/01/23 18:13 Resp 16 03/01/23 13:12 BP 133/101 03/01/23 16:00 Pulse Ox 96 03/01/23 18:13 O2 Del Method Room Air 03/01/23 18:13 Weight last 48 hrs Weight 114.759 kg Physical Exam Narrative: Accompanied by his Const: COMMON NORMALS: patient oriented x3 and alert GENERAL APPEARANCE: cooperative ORIENTATION/CONSCIOUSNESS: Yes awake HENMT: COMMON NORMALS: oropharynx normal Neck/C-Spine: COMMON NORMALS: no JVD Chest: OTHER: No pain reproducible on palpation Resp: COMMON NORMALS: normal respiratory effort and clear to auscultation bilaterally AUSCULTATION: clear to auscultation bilaterally Cardio: COMMON NORMALS: no JVD, regular rhythm, S1 normal heart sound present, S2 normal heart sound present and No murmurs present (Cardio) RHYTHM: regular rhythm HEART SOUNDS: S1 normal heart sound present and S2 normal heart sound present GI: COMMON NORMALS: Normal to inspection, nondistended, normoactive bowel sounds present, Soft to palpation and non-tender PALPATION: Yes Soft to palpation Extremity: COMMON NORMALS: no joint enlargement and no pedal edema Neuro: COMMON NORMALS: patient oriented x3 and moves all extremities SENSORIUM/ORIENTATION: Yes alert Skin: COMMON NORMALS: no rashes or lesions noted GENERAL SKIN EXAM: no rashes or lesions noted Data 03/01/23 13:40 03/01/23 13:40 A&P Assessment and plan (1) Chest pain: Chest pain/pressure with history of abnormal stress test, risk of unstable angina. Complete troponin EKG series. Monitor on telemetry. Assess TTE. Cardiology has been consulted, discussed with cardiology for now hold off Eliquis, on assessment cardiology will decide whether to continue Eliquis versus hold off. Discussed with cardiology. Discussed with ER physician, ER documentation reviewed. EKG on my interpretation without obvious OR, although there is some T wave inversion in 1 and aVL. D-dimer noted WNL. On Eliquis. Chest x-ray reviewed. Nitroglycerin, morphine, Tylenol as needed. (2) Abnormal stress test: Noted on review Plan HTN: Monitor blood pressures HLD: He states recently he was given prescription for statin although has not yet filled it. Start statin. Attestations Medical Necessity Statement*: Place in observation for additional assessment management of chest pain in a gentleman with recently abnormal stress test. Diagnoses Chest pain R07.9 Abnormal stress test R94.39
--- NOTE | 2023-03-01 19:19 | USCV_ITS ---
Jesus Yen Age: 72 Gender: M : 1950 Exam Date: 03/01/2023 20:07 Ordering Phys: Juanito Lagunas MD Technologist: YONG [place]am Location[place] [facility] [place]: chest pain today. He states no hx cardiac intervention yet, but admits to first time Afib x 3 months. BP: 133 / 101 HR: 69 Rhythm: Atrial fibrillation Technical Quality: Adequate with [employer] MEASUREMENTS (Male / Female) Normal Values 2D ECHO LV Diastolic Diameter PLAX 3.7 cm 4.2 - 5.9 / 3.9 - 5.3 cm LV Systolic Diameter PLAX 2.5 cm IVS Diastolic Thickness 1.3 cm 0.6 - 1.0 / 0.6 - 0.9 cm IVS Systolic Thickness 1.8 cm LVPW Diastolic Thickness 1.6 cm 0.6 - 1.0 / 0.6 - 0.9 cm LVPW Systolic Thickness 1.1 cm LVOT Diameter 2.3 cm LV Ejection Fraction 2D Teich 59.6 % LV Ejection Fraction MOD 2C 59.9 % LV Ejection Fraction 2C AL 62.2 % LA Diameter 5.2 cm LA Width 4.1 cm LA Height 7.0 cm RA Width 4.8 cm RA Height 6.3 cm Aorta at Sinotubular Diameter 3.8 cm IVC Diameter 2.1 cm M-MODE Aortic Annulus Diameter 3.5 cm LA Ao Ratio MM 1.4 MV E Point Septal Separation 0.4 cm DOPPLER AV Peak Velocity 225.0 cm/s LVOT Peak Velocity 82.0 cm/s AV Area Cont Eq vti 1.5 cm squared AV Area Cont Eq pk 1.5 cm squared MV Area PHT 3.3 cm squared MV E' Velocity 51.5 cm/s Mitral E to MV E' Ratio 8.4 Mitral E to LV E' Lateral Ratio 7.3 Mitral E to LV E' Septal Ratio 10.0 TR Peak Velocity 217.0 cm/s TR Peak Gradient 18.8 mmHg TV Peak E Velocity 61.0 cm/s Right Atrial Pressure 5.0 mmHg Pulmonary Artery Systolic Pressu 23.8 mmHg PV Peak Velocity 79.0 cm/s RV Acceleration Time 0.1 s RV Ejection Time 0.3 s RV AcT/ET 0.4 FINDINGS Left Ventricle Normal left ventricular size and systolic function, EF 57 %. No regional wall motion abnormalities. Right Ventricle The right ventricle is normal in size and function. Right Atrium Mildly increased right atrial size. Left Atrium Mildly dilated Mitral Valve Mild mitral valve regurgitation. Aortic Valve Thickened aortic valve. Features of aortic valve sclerosis Tricuspid Valve No gross abnormalities noted Pulmonic Valve Pulmonic valve not well visualized. Pericardium No pericardial effusion. Aorta Normal ascending aorta dimension. IVC Inferior vena cava not visualized. CONCLUSIONS Normal left ventricular size and systolic function, EF 57 %. No regional wall motion abnormalities. Mild biatrial enlargement. Mild mitral valve regurgitation. Thickened aortic valve. Features of aortic valve sclerosis. There is no pericardial effusion. Compared to the study from 01/02/2023, there may not be a significant change Dr Megan Coates MD FAC (Electronically Signed) Final Date: 02 March 2023 12:23 S
--- NOTE | 2023-03-01 19:27 | P.CONIM_ITS ---
Providers/Reason For Consult Consulting Physician/Specialty*: NIMESH Coates MD/cardiology Reason for Consult*: Patient is a chest pain, recent abnormal Myocardial perfusion imaging, recently diagnosed atrial fibrillation Requesting Physician: Dr. Lagunas Attending Physician: Juanito Lagunas Primary Care Provider: Ron Mann DO History of Present Illness History of Present Illness Jesus Yen is a 72 year old male with a history of high blood pressure, dyslipidemia and recently diagnosed atrial fibrillation, he is presenting with complaints of left-sided chest pain since yesterday evening. He had a recent Myocardial perfusion imaging which he was found to be abnormal. Cardiology consult is requested for further cardiac evaluation recommendations. This patient apparently has been in his baseline state of health up until yesterday evening when he started having dull aching type of pain in the left inframammary region. The pain was radiating slightly to the anterior part of the chest. He did not have any associated nausea or vomiting. The pain was getting worse with deep inspiration. Lying on that side was making the pain worse. There was no relief of the pain with the sublingual nitro. On a scale of 1-10, the intensity of the pain was 4/10. Because of the persistence of this pain, he decided to come to the hospital emergency room today, as advised. At the time of examination, the intensity of the pain is 2-3/10. He has no fever, chills or cough. No other specific complaints. Patient has no previous history for coronary artery disease, myocardial infarction or congestive heart failure. He was found to be in atrial fibrillation by EKG, done preoperatively for cataract surgery in August of this year. He had a Myocardial perfusion imaging a week ago, here in our hospital. He was found to have a small area of reversible defect in the apical anterior and apical lateral wall region, suggestive of ischemia in the distribution of the left anterior descending artery. 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 He quit smoking almost 40 years ago. No alcohol abuse or any other substance abuse. His mother had PCI in her 60s. Many of the maternal uncles also had coronary interventions, in their 60s and 70s. No other relevant family history. Review of Systems Narrative: CONSTITUTIONAL: No fever or chills. [] EYES: No blurring of vision or other visual disturbances lately. [] ENT: No hoarseness of voice, auditory disturbances or sore throat. [] CARDIOVASCULAR: As mentioned above. [] RESPIRATORY: No significant cough. [] GASTROINTESTINAL: No hematemesis or melena. [] GENITOURINARY: No dysuria or hematuria. [] INTEGUMENTARY: No skin rashes or history of skin cancer. NEURO: No transient ischemic attacks or amaurosis. PSYCHIATRIC: No history of psychosis or major depression. HEMATOLOGIC: No bleeding disorders or significant anemia. ENDOCRINE: No history of polyuria or polydipsia. MUSCULOSKELETAL: No recent joint pain or swelling. ALLERGY/IMMUNOLOGY: As mentioned above. Medications/Allergies Home Medications Medication Instructions Recorded Confirmed Last Taken Type ascorbic acid (vitamin C) 500 mg 500 mg PO DAILY 03/30/22 03/01/23 02/28/23 History tablet (Vitamin C) magnesium oxide 400 mg PO DAILY 03/30/22 03/01/23 02/28/23 History omega-3 fatty acids 1,000 mg 1,000 mg PO DAILY 03/30/22 03/01/23 02/28/23 History capsule cholecalciferol (vitamin D3) 25 25 mcg PO DAILY 01/15/23 03/01/23 02/28/23 History mcg (1,000 unit) capsule (Vitamin D3) apixaban 5 mg tablet (Eliquis) 5 mg PO BID #180 tabs 02/01/23 03/01/23 03/01/23 Rx nitroglycerin 0.4 mg sublingual 0.4 mg sublingual Q5M PRN chest 02/01/23 03/01/23 Unknown Rx tablet pain #30 tabs diltiazem HCl 240 mg capsule,24 240 mg PO DAILY #30 caps 02/22/23 03/01/23 03/01/23 Rx hr,extended release zinc acetate 50 mg (zinc) capsule 50 mg PO DAILY 03/01/23 03/01/23 02/28/23 History Allergies Allergy/AdvReac Type Severity Reaction Status Date / Time No Known Allergies Allergy Verified 03/01/23 11:56 PFSH Acute PFSH: Medical History History of atrial fibrillation History of hypertension Surgical History No pertinent past surgical history S/P cataract surgery Family History Mother Stroke Seizure Grandfather Myocardial infarction Family/Other Stroke Hypertension Social History Smoking and tobacco status: former smoker Alcohol intake: never Substance/Drug Use: never Vitals/I&O/Wt Last Vital Signs Temp 97.5 F L 03/01/23 13:12 Pulse 72 03/01/23 18:13 Resp 16 03/01/23 13:12 BP 133/101 03/01/23 16:00 Pulse Ox 96 03/01/23 18:13 O2 Del Method Room Air 03/01/23 18:13 Weight last 48 hrs Weight 253 lb Physical Exam Narrative: GENERAL: The patient is alert and oriented times three. Not in any acute distress. Moderately obese HEENT: No significant pallor, icterus or lymphadenopathy.Oral cavity: There are no mucous membrane lesions. NECK: Trachea appears to be central. No masses noted. No JVD or thyromegaly appreciated. RESPIRATORY: Chest is symmetrical. No intercostals muscle retraction or any accessory muscle activation. There is no chest wall tenderness. Breath sounds are heard bilaterally. No rales or rhonchi heard. No evidence of any consolidation. [] BREASTS: Deferred. HEART: The heart sounds are normal. No S3 or S4. No significant murmurs. No pericardial rub ABDOMEN: No vessel pulsations or distention. No tenderness. No organomegaly appreciated. Bowel sounds are normally heard. : Deferred. RECTAL: Deferred. LYMPHATIC: No lymphadenopathy noted in the neck. EXTREMITIES: No edema or cyanosis. No clubbing. MUSCULOSKELETAL: No acute joint deformities or swelling SKIN: There are no significant rashes or ecchymosis NEUROPSYCHIATRIC: The patient is alert and oriented x3. Appears to be in a good mood. No tremors or rigidity noted. Data 03/01/23 13:40 03/01/23 13:40 Other Labs: Laboratory Last Values WBC 9.41 10^3/uL (3.29-11.43) 03/01/23 13:40 RBC 4.61 10^6/uL (3.85-5.65) 03/01/23 13:40 Hgb 14.30 g/dL (11.27-16.99) 03/01/23 13:40 Hct 43.3 % (37-53) 03/01/23 13:40 MCV 93.9 fl (82-101) 03/01/23 13:40 MCH 31.0 pg (27-33) 03/01/23 13:40 MCHC 33.0 g/dL (30-55) 03/01/23 13:40 RDW 13.4 % (12.1-15.1) 03/01/23 13:40 Plt Count 139 10^3/cmm (157-399) L 03/01/23 13:40 MPV 11.2 fL (7.4-10.4) H 03/01/23 13:40 Neut % (Auto) 71.7 % 03/01/23 13:40 Lymph % (Auto) 16.7 % 03/01/23 13:40 [place] % (Auto) 10.2 % 03/01/23 13:40 Eos % (Auto) 0.7 % 03/01/23 13:40 Baso % (Auto) 0.5 % 03/01/23 13:40 Neut # (Auto) 6.74 10^3/uL (1.8-7.7) 03/01/23 13:40 Lymph # (Auto) 1.6 10^3/uL (0.8-4.8) 03/01/23 13:40 [place] # (Auto) 1.0 10^3/uL (0.2-0.9) H 03/01/23 13:40 Eos # (Auto) 0.1 10^3/uL (0.0-0.8) 03/01/23 13:40 Baso # (Auto) 0.1 10^3/uL (0.0-0.1) 03/01/23 13:40 Nucleated RBC % (auto) 0 % 03/01/23 13:40 Nucleated RBCs # 0.0 /100WBC 03/01/23 13:40 D-Dimer 0.42 ug/mLFEU (0-0.59) 03/01/23 13:40 Sodium 136 mmol/L (136-145) 03/01/23 13:40 Potassium 4.1 mmol/L (3.5-5.1) 03/01/23 13:40 Chloride 104 mmol/L (98-107) 03/01/23 13:40 Carbon Dioxide 25 mmol/L (22-29) 03/01/23 13:40 Anion Gap 11.1 (5-19) 03/01/23 13:40 BUN 22 mg/dL (8-23) 03/01/23 13:40 Creatinine 0.9 mg/dL (0.7-1.2) 03/01/23 13:40 GFR Calculation Not Reportable 03/01/23 13:40 Glucose 93 mg/dL (65-115) 03/01/23 13:40 Calculated Osmolality 285 mOsm/kg (285-295) 03/01/23 13:40 Calcium 8.5 mg/dL (8.5-10.5) 03/01/23 13:40 Total Bilirubin 0.5 mg/dL (0.15-1.2) 03/01/23 13:40 AST 20 U/L (0-40) 03/01/23 13:40 ALT 22 U/L (0-41) 03/01/23 13:40 Alkaline Phosphatase 78 U/L (40-130) 03/01/23 13:40 Troponin T Baseline 8 ng/L (0-15) 03/01/23 13:40 Troponin T 120 Minute 7.11 ng/L (0-15) 03/01/23 16:07 Delta Troponin T -0.89 ABS# (0-10) L 03/01/23 16:07 NT-Pro-B Natriuret Pep 653 pg/mL (0-125) H 03/01/23 13:40 Total Protein 6.8 g/dL (6.6-8.7) 03/01/23 13:40 Albumin 3.5 g/dL (3.5-5.2) 03/01/23 13:40 Globulin 3.3 g/dL (1.3-4.6) 03/01/23 13:40 Other data: EKG from 03/01/2023 Atrial fibrillation with a ventricular response rate of 64 bpm. Nonspecific T wave changes. Poor R wave progression. Myocardial perfusion imaging on 02/18/2023 ?1. Small sized reversible perfusion abnormality of mild severity of apical ?anterior and apical lateral ferrari. ?2. This may represent small area of ischemia in left anterior descending artery ?territory. ?3. Overall left ventricular systolic function is normal without regional wall ?motion abnormalities, LVEF=56%. ?4. No Lexiscan induced EKG changes.? Refer to separate report for details. ?5. Scan indicates low risk for cardiac events. Date of Service: 01/02/23 Procedure(s): CV. echo complete* [id number] ?CONCLUSIONS ?1-Normal left ventricular size, systolic function and wall ?thickness, with no regional wall motion abnormalities.left ?ventricular ejection fraction is estimated at 55 %.? .Grade ?II/IV diastolic dysfunction, moderately elevated filling?pressures. ?2- Moderately increased left atrial size. ?3-Severe aortic valve calcification. Moderate aortic valve ?stenosis, mean gradient 7.7 mmHg, KALEB 1.5 cm squared. Trace aortic?valve regurgitation. ?4-Structurally normal mitral valve without significant stenosis?or prolapse.? There is mild mitral regurgitation.? ?5-There is no pericardial effusion. ?6-Right atrial pressure is around 5-10 mm of mercury. ?7-There are no prior echocardiogram studies to compare. ?Renetta Nelson MD? ?(Electronically Signed) A&P Assessment and plan (1) Chest pain: The patient's prolonged and persistent chest pain seems to be very atypical for coronary ischemia. However in view of his multiple risk factors and the abnormal perfusion scan, possibility of him having underlying coronary artery d isease is a strong consideration. Currently he seems to be stable hemodynamically. The EKG is unremarkable. No evidence of myocardial injury. (2) Abnormal stress test: The small area of reversible defect is suggestive of ischemia in the distribution of the left anterior descending artery. In order to further evaluate his coronary status, he requires a cardiac catheterization. However since he is on oral anticoagulation, we may have to wait for 48 hours after stop ping the Eliquis for the procedure. (3) History of hypertension: The blood pressure is slightly elevated. Antihypertensive medications need to be optimized. (4) Atrial fibrillation: Patient is on the diltiazem for rate control. I may cut back the dose of diltiazem to 180 mg p.o. daily and add a small dose of beta-shawna because of the frequent PVCs on the monitor (5) Dyslipidemia: may continue on the current medications. (6) Ventricular arrhythmia: I may start him on a small dose of metoprolol and cut back on the dose of the diltiazem. Also may be started on Mag-Tab SR 84 mg 2 tablets p.o. daily. Plan Based on the patient's clinical progress, further recommendations will be made. Tthank for the opportunity to evaluate this patient and make these recommendations Consult Attestations Medical Necessity Statement: patient requires continued hospital stay for close monitoring and further management Coding Level of Care Code 16124 Diagnoses Chest pain R07.9 Abnormal stress test R94.39 History of hypertension Z86.79 Atrial fibrillation I48.91 Dyslipidemia E78.5 Ventricular arrhythmia I49.9
[2023-03-01 20:12] LABS: Creatine Phosphokinase 56 U/L (39-308)
[2023-03-01 20:15] LABS: Troponin 5 6HR 7.17 ng/L (0-15); Troponin 5 6HR Delta -0.83 ng/L (0-12)
[2023-03-01] MEDS: metoprolol tartrate 25 mg Tablet PO (21:30)
[2023-03-01] MEDS: atorvastatin 40 mg Tablet PO (21:30)
[2023-03-02 00:58] VITALS: BP 128/90; PULSE 74; RESP 0; TEMP 36.7; O2SAT 95
[2023-03-02 04:00] VITALS: BP 116/93; PULSE 80; RESP 14; TEMP 36.6; O2SAT 97
[2023-03-02 05:17] LABS: Basophils % 0.5 %; Eosinophils # 0.1 10^3/uL (0.0-0.8); Eosinophils % 1.4 %; Hematocrit 43.2 % (37-53); Lymphocytes # 1.8 10^3/uL (0.8-4.8); Lymphocytes % 23.6 %; Mean Corpuscular HGB Conc 31.9 g/dL (30-55); Mean Corpuscular Hemoglobin 30.4 pg (27-33); Mean Corpuscular Volume 95.2 fl (82-101); Mean Platelet Volume 12.5 fL (7.4-10.4); Monocytes # 0.9 10^3/uL (0.2-0.9); Monocytes % 11.9 %; Neutrophils # 4.74 10^3/uL (1.8-7.7); Neutrophils % 62.3 %; Nucleated Red Blood Cells % 0 %; Platelet Count 101 10^3/cmm (157-399); Red Blood Count 4.54 10^6/uL (3.85-5.65); Red Cell Distribution Width 13.6 % (12.1-15.1); White Blood Count 7.62 10^3/uL (3.29-11.43)
[2023-03-02 05:43] LABS: Anion Gap 13.2 (5-19); Blood Urea Nitrogen 15 mg/dL (8-23); Calcium 8.7 mg/dL (8.5-10.5); Carbon Dioxide 26 mmol/L (22-29); Chloride 105 mmol/L (98-107); Glucose 95 mg/dL (65-115); Osmolality Calculated 291 mOsm/kg (285-295); Potassium 4.2 mmol/L (3.5-5.1); Sodium 140 mmol/L (136-145)
[2023-03-02] MEDS: perflutren protein-a microsphr 0.22 mg/mL SDV 3 mL IV (05:44)
[2023-03-02 05:48] VITALS: PULSE 67
[2023-03-02 07:40] VITALS: BP 119/74; PULSE 87; RESP 16; TEMP 36.5; O2SAT 96
[2023-03-02] MEDS: dilTIAZem ER (24HR) 180 mg Capsule PO (08:00)
[2023-03-02] MEDS: metoprolol tartrate 25 mg Tablet PO (08:00)
--- NOTE | 2023-03-02 11:03 | PC.CHAP ---
Pastoral Care Encounter/Spiritual Assessment Type of Contact [] Declined wildlife science professor visit [] Patient/Family/Request visit [] Outpatient visit [] Follow-up visit [] Physician referral [] Code/Alert [x] Routine visit [] Staff referral [] Actively dying [] Patient sleeping [] Family support [] [] Out of room [] Palliative care [] [] Receiving care in room [] Pre-surgical visit [] Trauma [] Long length of stay [] ICU visit [] Other: Relational/Emotional Strength [x] Patient feels connected with others/family/visitors/staff [] Distress [] Loneliness/isolation [] Abandonment Spirituality of Patient [] Person of Kitty [] Attends Christian of their Kitty [] Believes in Prayer [] Reads Bible or Hoahaoism materials [] There are Spiritual issues to be addressed Metallurgical Lab Technician Interventions [] Prayer [] Active listening [] Non-anxious presence [] Spiritual/emotional support [] Crisis/trauma care [] Spiritual counseling [] Bereavement support [] Provided bereavement packet [] Provided Bible/devotional materials [] Provided toy/stuffed animal, coloring book to patient or family member [] Provided Communion [] Anointing/[place] [] Salvation [] Completed spiritual assessment [] Other: Impact on Illness or Injury [] Angry [] Fearful [] Anxious [] Often cries [] Exhaustion [] Unable to work [] Unable to attend oriental orthodox [] Unable to walk/stand [] Unable to read [] Unable to drive [] Unable to eat/drink [] Unable to sleep [] Unable to be with family [] Patient intubated [] Other: Summary Time spent with patient 15 minutes
[2023-03-02 11:30] VITALS: BP 113/71; PULSE 66; RESP 15; TEMP 36.8; O2SAT 97
--- NOTE | 2023-03-02 12:24 | P.PN_ITS ---
Subjective Subjective: Patient still has some vague discomfort in the left side of the chest. So far, there is no evidence of myocardial injury. The vital signs are stable. Medications: Medication Review Details: Current Medications Acetaminophen (Acetaminophen 325 Mg Tablet) 650 mg PO Q6H PRN PRN Reason: Mild/Mod Pain Or Temp >/= 101 Atorvastatin Calcium (Atorvastatin 40 Mg Tablet) 40 mg PO BEDTIME [facility] Last Admin: 03/01/23 21:30 Dose: 40 mg Diltiazem HCl (Diltiazem Er (24hr) 180 Mg Capsule) 180 mg PO DAILY [facility] Last Admin: 03/02/23 08:00 Dose: 180 mg Metoprolol Tartrate (Metoprolol Tartrate 25 Mg Tablet) 25 mg PO BID@0900,2100 [facility] Last Admin: 03/02/23 08:00 Dose: 25 mg Morphine Sulfate (Morphine 4 Mg/Ml Sdv 1 Ml) 2 mg IVP Q4H PRN PRN Reason: SEVERE PAIN Nitroglycerin (Nitroglycerin 0.4 Mg Sublingual Tablet) 0.4 mg SUBLINGUAL Q5M PRN PRN Reason: chest pain Ondansetron HCl (Ondansetron 2 Mg/Ml Sdv 2 Ml) 4 mg IVP Q8H PRN PRN Reason: vomiting, or N/V if npo Vitals/I&O/Wt Last Vital Signs Temp 98.2 F 03/02/23 11:30 Pulse 66 03/02/23 11:30 Resp 15 03/02/23 11:30 BP 113/71 03/02/23 11:30 Pulse Ox 97 03/02/23 11:30 O2 Del Method Room Air 03/02/23 11:30 03/01/23 03/02/23 03/02/23 22:59 06:59 14:59 Intake Total 240 / 240 420 / 420 Output Total 200 / 200 Balance 240 / 240 -200 / 40 420 / 420 Weight last 48 hrs Weight 253 lb Physical Exam Narrative: GENERAL: The patient is alert and oriented times three. Not in any acute distress. Moderately obese HEENT: No significant pallor, icterus or lymphadenopathy.Oral cavity: There are no mucous membrane lesions. NECK: Trachea appears to be central. No masses noted. No JVD or thyromegaly appreciated. RESPIRATORY: Chest is symmetrical. No intercostals muscle retraction or any accessory muscle activation. There is no chest wall tenderness. Breath sounds are heard bilaterally. No rales or rhonchi heard. No evidence of any consolidation. [] BREASTS: Deferred. HEART: The heart sounds are normal. No S3 or S4. No significant murmurs. No pericardial rub ABDOMEN: No vessel pulsations or distention. No tenderness. No organomegaly appreciated. Bowel sounds are normally heard. : Deferred. RECTAL: Deferred. LYMPHATIC: No lymphadenopathy noted in the neck. EXTREMITIES: No edema or cyanosis. No clubbing. MUSCULOSKELETAL: No acute joint deformities or swelling SKIN: There are no significant rashes or ecchymosis NEUROPSYCHIATRIC: The patient is alert and oriented x3. Appears to be in a good mood. No tremors or rigidity noted. Data 03/02/23 04:47 03/02/23 04:47 Other Labs: Laboratory Last Values WBC 7.62 10^3/uL (3.29-11.43) 03/02/23 04:47 RBC 4.54 10^6/uL (3.85-5.65) 03/02/23 04:47 Hgb 13.80 g/dL (11.27-16.99) 03/02/23 04:47 Hct 43.2 % (37-53) 03/02/23 04:47 MCV 95.2 fl (82-101) 03/02/23 04:47 MCH 30.4 pg (27-33) 03/02/23 04:47 MCHC 31.9 g/dL (30-55) 03/02/23 04:47 RDW 13.6 % (12.1-15.1) 03/02/23 04:47 Plt Count 101 10^3/cmm (157-399) L 03/02/23 04:47 MPV 12.5 fL (7.4-10.4) H 03/02/23 04:47 Neut % (Auto) 62.3 % 03/02/23 04:47 Lymph % (Auto) 23.6 % 03/02/23 04:47 [place] % (Auto) 11.9 % 03/02/23 04:47 Eos % (Auto) 1.4 % 03/02/23 04:47 Baso % (Auto) 0.5 % 03/02/23 04:47 Neut # (Auto) 4.74 10^3/uL (1.8-7.7) 03/02/23 04:47 Lymph # (Auto) 1.8 10^3/uL (0.8-4.8) 03/02/23 04:47 [place] # (Auto) 0.9 10^3/uL (0.2-0.9) 03/02/23 04:47 Eos # (Auto) 0.1 10^3/uL (0.0-0.8) 03/02/23 04:47 Baso # (Auto) 0.0 10^3/uL (0.0-0.1) 03/02/23 04:47 Nucleated RBC % (auto) 0 % 03/02/23 04:47 Nucleated RBCs # 0.0 /100WBC 03/02/23 04:47 D-Dimer 0.42 ug/mLFEU (0-0.59) 03/01/23 13:40 Sodium 140 mmol/L (136-145) 03/02/23 04:47 Potassium 4.2 mmol/L (3.5-5.1) 03/02/23 04:47 Chloride 105 mmol/L (98-107) 03/02/23 04:47 Carbon Dioxide 26 mmol/L (22-29) 03/02/23 04:47 Anion Gap 13.2 (5-19) 03/02/23 04:47 BUN 15 mg/dL (8-23) 03/02/23 04:47 Creatinine 0.7 mg/dL (0.7-1.2) 03/02/23 04:47 GFR Calculation Not Reportable 03/02/23 04:47 Glucose 95 mg/dL (65-115) 03/02/23 04:47 Calculated Osmolality 291 mOsm/kg (285-295) 03/02/23 04:47 Calcium 8.7 mg/dL (8.5-10.5) 03/02/23 04:47 Total Bilirubin 0.5 mg/dL (0.15-1.2) 03/01/23 13:40 AST 20 U/L (0-40) 03/01/23 13:40 ALT 22 U/L (0-41) 03/01/23 13:40 Alkaline Phosphatase 78 U/L (40-130) 03/01/23 13:40 Creatine Kinase 56 U/L (39-308) 03/01/23 19:34 Troponin T Baseline 8 ng/L (0-15) 03/01/23 13:40 Troponin T 120 Minute 7.11 ng/L (0-15) 03/01/23 16:07 Delta Troponin T -0.89 ABS# (0-10) L 03/01/23 16:07 Troponin T Hi Sens 6Hr 7.17 ng/L (0-15) 03/01/23 19:34 Troponin T Hi Sens 6Hr Delta -0.83 ng/L (0-12) L 03/01/23 19:34 NT-Pro-B Natriuret Pep 653 pg/mL (0-125) H 03/01/23 13:40 Total Protein 6.8 g/dL (6.6-8.7) 03/01/23 13:40 Albumin 3.5 g/dL (3.5-5.2) 03/01/23 13:40 Globulin 3.3 g/dL (1.3-4.6) 03/01/23 13:40 A&P Assessment and plan (1) Chest pain: The patient's prolonged and persistent chest pain seems to be very atypical for coronary ischemia. However in view of his multiple risk factors and the abnormal perfusion scan, possibility of him having underlying coronary artery disease is a strong consideration. Currently he seems to be stable hemodynamically. The EKG is unremarkable. No evidence of myocardial injury. His clinical status seems to be stable. He is ambulating around without any significant symptoms. (2) Abnormal stress test: The small area of reversible defect is suggestive of ischemia in the distribution of the left anterior descending artery. In order to further evaluate his coronary status, he requires a cardiac catheterization. However since he is on oral anticoagulation, we may have to wait for 48 hours after stopping the Eliquis for the procedure. Patient is wanting to go home and come back for the procedure (3) History of hypertension: The blood pressure is slightly elevated. Antihypertensive medications need to be optimized. (4) Atrial fibrillation: There is significant improvement of the PVCs with the beta-shawna. May continue on the current medications. (5) Dyslipidemia: may continue on the current medications. (6) Ventricular arrhythmia: Patient has significant improvement of the ventricular arrhythmia. May continue on the beta-shawna. Plan Patient is scheduled to have a cardiac catheterization on Tuesday at [address] Ballesteros. If he continues to remain stable, will be discharged home today. Attestations Medical Necessity Statement*: Possible discharge home today Coding Level of Care Code 65600 Diagnoses Chest pain R07.9 Abnormal stress test R94.39 History of hypertension Z86.79 Atrial fibrillation I48.91 Dyslipidemia E78.5 Ventricular arrhythmia I49.9
--- NOTE | 2023-03-02 12:48 | PM.DCS ---
Discharge Providers Date of Admission: 03/01/23 18:11 Date of Discharge: March 02, 2023 Attending Provider at Admission: Juanito Lagunas Attending Provider at Discharge: Juanito Lagunas Primary Care Provider: Ron Mann DO Diagnoses at Discharge Discharge Diagnosis (1) Chest pain: Status: Acute (2) Abnormal stress test: Status: Acute (3) History of hypertension: Status: Acute (4) Atrial fibrillation: Status: Acute (5) Dyslipidemia: Status: Acute (6) Ventricular arrhythmia: Status: Acute Reason for Visit Reason for Visit: sent by kelsy/chest pain Brief History: Jesus Yen is a 72 year old gentleman with history of abnormal stress test earlier this month, with small area of reversible ischemia in territory of LAD, former smoker but quit in the 1970s, started creasing chest pain last night and was 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 Although overall symptoms have improved, he still is having some mild pressure in the left side. He symptoms did not respond to nitroglycerin.? He states symptoms are somewhat worse with deep inspiration.? Denies cough or shortness of breath.? D-dimer noted to WNL.? He is on Eliquis due to history of atrial fibrillation. Chest x-ray without acute findings, stable cardiomegaly. Hospital Course Hospital Course Overnight he did well. Minimal chest discomfort. Overall pain not typical for cardiac etiology. Otherwise chest x-ray unremarkable. D-dimer not elevated. He denies any respiratory issues. Denies any swallowing pain or difficulty. Troponin series were completed, troponin without elevation. He was assessed by cardiology. Had an echocardiogram, which is similar to prior study. Given previous recently abnormal stress test and risks cardiology discussed with him and they decided to arrange for additional assessment by coronary angiography. Eliquis was to be held prior to the procedure, otherwise he is cleared for return home for now with return for coronary angiogram on Tuesday morning, holding Eliquis in the meantime, while off Eliquis on low-dose aspirin. He is also started on statin. Beta-shawna was added by cardiology as well. He knows to return to the hospital in case of any worsening or new worrisome symptoms. Physical Exam Const: COMMON NORMALS: patient oriented x3 and alert GENERAL APPEARANCE: cooperative ORIENTATION/CONSCIOUSNESS: Yes awake HENMT: COMMON NORMALS: oropharynx normal Neck/C-Spine: COMMON NORMALS: no JVD Resp: COMMON NORMALS: normal respiratory effort and clear to auscultation bilaterally AUSCULTATION: clear to auscultation bilaterally Cardio: COMMON NORMALS: no JVD, regular rhythm, S1 normal heart sound present, S2 normal heart sound present and No murmurs present (Cardio) RHYTHM: regular rhythm HEART SOUNDS: S1 normal heart sound present and S2 normal heart sound present GI: COMMON NORMALS: Normal to inspection, nondistended, normoactive bowel sounds present, Soft to palpation and non-tender PALPATION: Yes Soft to palpation Extremity: COMMON NORMALS: no joint enlargement and no pedal edema Neuro: COMMON NORMALS: patient oriented x3 and moves all extremities SENSORIUM/ORIENTATION: Yes alert Skin: COMMON NORMALS: no rashes or lesions noted GENERAL SKIN EXAM: no rashes or lesions noted Discharge Data Studies Completed and Pending Completed Studies During Hospitalization Category Date Time Status XR chest 1V portable [id number] Urgent Exams 03/01/23 13:27 Completed CV. echo wo/w contrast [id number] Routine Ultrasound 03/01/23 19:19 Completed Radiology Impressions Chest X-Ray 03/01/23 13:27 IMPRESSION: 1. No acute findings. 2. Stable cardiomegaly. Laboratory Results WBC 7.62 10^3/uL (3.29-11.43) 03/02/23 04:47 RBC 4.54 10^6/uL (3.85-5.65) 03/02/23 04:47 Hgb 13.80 g/dL (11.27-16.99) 03/02/23 04:47 Hct 43.2 % (37-53) 03/02/23 04:47 MCV 95.2 fl (82-101) 03/02/23 04:47 MCH 30.4 pg (27-33) 03/02/23 04:47 MCHC 31.9 g/dL (30-55) 03/02/23 04:47 RDW 13.6 % (12.1-15.1) 03/02/23 04:47 Plt Count 101 10^3/cmm (157-399) L 03/02/23 04:47 MPV 12.5 fL (7.4-10.4) H 03/02/23 04:47 Neut % (Auto) 62.3 % 03/02/23 04:47 Lymph % (Auto) 23.6 % 03/02/23 04:47 Stephenson % (Auto) 11.9 % 03/02/23 04:47 Eos % (Auto) 1.4 % 03/02/23 04:47 Baso % (Auto) 0.5 % 03/02/23 04:47 Neut # (Auto) 4.74 10^3/uL (1.8-7.7) 03/02/23 04:47 Lymph # (Auto) 1.8 10^3/uL (0.8-4.8) 03/02/23 04:47 Stephenson # (Auto) 0.9 10^3/uL (0.2-0.9) 03/02/23 04:47 Eos # (Auto) 0.1 10^3/uL (0.0-0.8) 03/02/23 04:47 Baso # (Auto) 0.0 10^3/uL (0.0-0.1) 03/02/23 04:47 Nucleated RBC % (auto) 0 % 03/02/23 04:47 Nucleated RBCs # 0.0 /100WBC 03/02/23 04:47 D-Dimer 0.42 ug/mLFEU (0-0.59) 03/01/23 13:40 Sodium 140 mmol/L (136-145) 03/02/23 04:47 Potassium 4.2 mmol/L (3.5-5.1) 03/02/23 04:47 Chloride 105 mmol/L (98-107) 03/02/23 04:47 Carbon Dioxide 26 mmol/L (22-29) 03/02/23 04:47 Anion Gap 13.2 (5-19) 03/02/23 04:47 BUN 15 mg/dL (8-23) 03/02/23 04:47 Creatinine 0.7 mg/dL (0.7-1.2) 03/02/23 04:47 GFR Calculation Not Reportable 03/02/23 04:47 Glucose 95 mg/dL (65-115) 03/02/23 04:47 Calculated Osmolality 291 mOsm/kg (285-295) 03/02/23 04:47 Calcium 8.7 mg/dL (8.5-10.5) 03/02/23 04:47 Total Bilirubin 0.5 mg/dL (0.15-1.2) 03/01/23 13:40 AST 20 U/L (0-40) 03/01/23 13:40 ALT 22 U/L (0-41) 03/01/23 13:40 Alkaline Phosphatase 78 U/L (40-130) 03/01/23 13:40 Creatine Kinase 56 U/L (39-308) 03/01/23 19:34 Troponin T Baseline 8 ng/L (0-15) 03/01/23 13:40 Troponin T 120 Minute 7.11 ng/L (0-15) 03/01/23 16:07 Delta Troponin T -0.89 ABS# (0-10) L 03/01/23 16:07 Troponin T Hi Sens 6Hr 7.17 ng/L (0-15) 03/01/23 19:34 Troponin T Hi Sens 6Hr Delta -0.83 ng/L (0-12) L 03/01/23 19:34 NT-Pro-B Natriuret Pep 653 pg/mL (0-125) H 03/01/23 13:40 Total Protein 6.8 g/dL (6.6-8.7) 03/01/23 13:40 Albumin 3.5 g/dL (3.5-5.2) 03/01/23 13:40 Globulin 3.3 g/dL (1.3-4.6) 03/01/23 13:40 Vitals Last Vital Signs Temp 98.2 F 03/02/23 11:30 Pulse 66 03/02/23 11:30 Resp 15 03/02/23 11:30 BP 113/71 03/02/23 11:30 Pulse Ox 97 03/02/23 11:30 O2 Del Method Room Air 03/02/23 11:30 Discharge Plan Discharge Patient Disposition: Home Condition: Stable Prescriptions: New metoprolol tartrate 25 mg Tablet 25 mg PO BID@0900,2100 Qty: 180 0RF atorvastatin 40 mg Tablet 40 mg PO BEDTIME Qty: 90 0RF aspirin 81 mg tablet,delayed release (DR/EC) 81 mg PO DAILY Qty: 90 0RF Continued nitroglycerin 0.4 mg tablet, sublingual 0.4 mg sublingual Q5M PRN (Reason: chest pain) Qty: 30 3RF Rx Instructions: do not exceed 3 doses per episode diltiazem HCl 240 mg capsule,extended release 24 hr 240 mg PO DAILY Qty: 30 3RF omega-3 fatty acids 1,000 mg Capsule 1,000 mg PO DAILY ascorbic acid (vitamin C) [Vitamin C] 500 mg Tablet 500 mg PO DAILY magnesium oxide 400 mg magnesium Tablet 400 mg PO DAILY zinc acetate 50 mg (zinc) Capsule 50 mg PO DAILY cholecalciferol (vitamin D3) [Vitamin D3] 25 mcg (1,000 unit) Capsule 25 mcg PO DAILY Held Eliquis 5 mg tablet 5 mg PO BID Qty: 180 2RF Hold Instructions: Resume on 03/05/23. Discharge Orders: Discharge Order (Routine); Ordered 03/02/23 Ordered By: Juanito Lagunas Referrals: Cath, Lab [Other] - 03/04/23 6:00 am Ron Mann, [Primary Care Provider] - 4-7 days Discharge Diet: Cardiac Patient Instructions: Heart Catheterization (GEN) Activity Restrictions/Additional Instructions: Hold Eliquis for now until resumed by your heart doctor. For now in the meantime take aspirin 81 mg daily while not on Eliquis. Return at 6 AM on Tuesday morning for coronary angiogram. Do not eat or drink after midnight the night before. You are also started on cholesterol medication due to suspected coronary disease. Metoprolol was added to help with rate control for atrial fibrillation. Monitor your blood pressure and heart rate twice daily, write down values. Please have your primary provider recheck your blood counts including your platelets. Your platelets are noted mildly decreased. Seek medical attention in case of any worsening or new concerning symptoms. Discharge Attestations Time Spent in Discharge Care*: greater than 30 min Quality Metrics Clinical Quality Measures [ No reported AMI, CVA or VTE this stay] Coding Level of Care Code 98805 Total time (in minutes) for Discharge: 50 Diagnoses Chest pain R07.9 Abnormal stress test R94.39 History of hypertension Z86.79 Atrial fibrillation I48.91 Dyslipidemia E78.5 Ventricular arrhythmia I49.9
[2023-03-02 14:22] VITALS: BP 113/71; PULSE 66; RESP 15; TEMP 36.8; O2SAT 97
--- NOTE | 2023-03-02 14:44 | PC.NURSE ---
Discharge Note Patient discharged to [home] via [w/c to POV] accompanied by [spouse]. Discharge instructions reviewed with patient and/or sales representative publications. Mobile pharmacy medications and/or prescriptions provided. Belongings/home medications returned.
== END 2023-03-02 14:40 | disposition home or self-care (01) | DRG 310 ==
LOC: ER 17:46 → CSU 18:52
PROVIDERS: Physician Assistant; Admitting Provider Internal Medicine; Emergency Provider Emergency Medicine; PCP Family Medicine; Visit Provider Internal Medicine
DX: I48.91 Unspecified atrial fibrillation (principal); R07.9 Chest pain, unspecified; R94.39 Abnormal result of other cardiovascular function study; E78.5 Hyperlipidemia, unspecified; I49.8 Other specified cardiac arrhythmias; Z79.01 Long term (current) use of anticoagulants; Z86.79 Personal history of other diseases of the circulatory system; Z87.891 Personal history of nicotine dependence
CPT/HCPCS: 36415; 71045; 80048; 80053; 82550; 83880; 84484; 85025; 85378; 93005; 99285; C8929; Q9956

== ENCOUNTER 2023-03-21 07:14 | Outpatient (CLI) | payer MEDICARE, SELFPAY ==
[2023-03-21] VITALS (29 sets, daily range): BP systolic 99–131; BP diastolic 65–87; PULSE 49–89; RESP 16–18; TEMP 36.4–36.7; O2SAT 87–98; BMI 32.5
--- NOTE | 2023-03-21 | XACV_ITS ---
Exam Room: 2 Ht: 188 cm Wt: 115 kg BSA: 2.48 m2 Gender: Male : 1950 Any Known Allergies: No known allergies Exam Priority: Routine Procedure(s): Procedure Description: Diagnostic procedure Procedure Description: PCI procedure Procedure Description: Drug Eluting Coronary Stent Procedure Description: PTCA Procedure Description: Miscellaneous Procedure Description: ACT Procedure Description: Coronary Angiography Procedure Description: Pressure Wire Diagnostic Cath Status: Elective Diagnostic Findings * Coronary angiography shows co dominance. * Left Main has no disease. * Proximal Left Anterior Descending with long segment 50-60% stenosis. Mid LAD with 50% stenosis. Small first diagonal with 50-60% ostial and proximal sement stenosis. * Ramus artery with no disease. * Circumflex has mild 20% stenosis after take off of first major obtuse marginal. * Proximal Right Coronary Artery: obstructive 70% stenosis, DOROTHY: 3 flow. * Mid Right Coronary Artery: obstructive 90% stenosis, DOROTHY: 3 flow. * Posterior Descending Right: diffuse obstructive 80-90% stenosis, DOROTHY: 3 flow. * Case was discussed and images were reviewed with Dr. Estrada. He took over the case at this time. PCI Status: Elective Interventional Findings * Proximal Right Coronary Artery: 70% stenosis treated with a AB TREK 3.00X15 RX BALLOON, AB TREK 3.00X25 RX BALLOON, and MDT R GABI 3.5X30 INES. * Mid Right Coronary Artery: 70% stenosis treated with a AB TREK 3.00X25 RX BALLOON, and MDT R GABI 3.0X38 INES. * Posterior Descending Right: 70% stenosis treated with a AB TREK 2.25X15 RX BALLOON. Conclusions 1. Proximal Right Coronary Artery was treated with a Balloon, Balloon, and Drug Eluting Stent. 2. Mid Right Coronary Artery was treated with a Balloon, and Drug Eluting Stent. 3. Posterior Descending Right was treated with a Balloon. Recommendations * Statin and aspirin 81mg lifelong, if tolerated. * Continue Plavix 75mg p.o. daily for at least one year. We will assess at the end of one year to determine continuation or not. Pressures Phase:Rest AO : 108 / 80 ( 95 ) @ 11:23:00 AM 103 / 80 ( 90 ) @ 11:25:00 AM 112 / 90 ( 102 ) @ 11:28:00 AM 109 / 83 ( 97 ) @ 11:28:00 AM 111 / 79 ( 96 ) @ 11:38:00 AM 94 / 78 ( 85 ) @ 11:43:00 AM 98 / 85 ( 92 ) @ 12:10:00 PM 101 / 78 ( 91 ) @ 12:15:00 PM Clinical Evaluation EBL: 5mL-10mL Procedural Details Procedure Consent Obtained. Pre-Procedure Time Out. Identified patient by full name and date of as verbalized by the patient/guarantor. Does the consent match the physician's order: Yes. Accurate & Complete Informed Consent: Yes. Inpatient/Outpatient History & Physical on Chart: Yes. If H&P is completed, is and addenduem needed: Yes; If yes, is the addendum complete: Yes. Visualize and Verify Site with Patient/Guarantor: N/A. Relevant Radiology Images available: Yes. Pre-op teaching completed and patient verbalized understanding. The risks, benefits, and alternatives of sedation and/or procedure were discussed by physician. The patient agrees to continue. Procedure started. Physician arrived. [facility] Clinical Fraility Score: 3: Managing Well. 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 Chest Pain Symptom Assessment: Atypical Angina. Correct patient, site and procedure confirmed by cath team. Current diagnosis: Chest Pain. PERRLA. 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 Lungs clear x 5 lobes. IV Site on Arrival: 20 gauge in the right anticubital. IV Fluids: 0.9% NaCl at KVO. 0 mL infused prior to quality control lab technician. Pre Procedural Pulses: bilateral dorsalis pedis was 2+. Pre Procedural Pulses: bilateral posterior tibial was 2+. Pre Procedural Pulses: bilateral radial was 2+. Oxygen started at 2liters/min via nasal canula. right groin was prepped with chloroprep then draped in the usual sterile fashion. right radial was prepped with chloroprep then draped in the usual sterile fashion. Baseline sample Acquired. HR: 65 BPM. Physician scrubbed in. Immediate Pre-Procedure Time Out. Correct Patient: Yes; Correct Procedure: Yes; Correct Site: Yes; Correct Patient Position: Yes; Correct Supplies: Yes; Dried Flammable Prep: Yes; Blood Products Available: N/A;. Lidocaine 1% infiltrated to the right radial. Arterial access obtained. A 5 [place] TIG catheter in over wire. Multiple views taken of left coronary artery. Catheter redirected to the RCA. Multiple views taken of right coronary artery. Dr. Estrada called to review films. Catheter removed over the exchange wire. Dr. Estrada arrived. Dr. Ballesteros scrubbed out. Dr. Estrada scrubbed in to perform intervention. 6 [place] JR 4 guide catheter was inserted over the wire. Runthrough guidewire was advanced through the guide catheter to lesion in the prox RCA. 3.0x25 Balloon inserted to lesion in the prox RCA. Balloon out. Inflation number : 1 A AB TREK 3.00X15 RX BALLOON was prepped and advanced across the Prox RCA , then inflated to 8 AXEL for 0:13 seconds. Balloon out. Guideliner inserted OTW and advanced to the RCA. Inflation number : 1 A AB TREK 3.00X25 RX BALLOON was prepped and advanced across the Mid RCA , then inflated to 10 AXEL for 0:21 seconds. Inflation number: 2 The AB TREK 3.00X25 RX BALLOON was reinflated across the Prox RCA, to 8 AXEL for 0:12 seconds. Inflation number: 3 The AB TREK 3.00X25 RX BALLOON was reinflated across the Prox RCA, to 8 AXEL for 0:26 seconds. Balloon out. Results checked. 3.0x38mm [place] Stent inserted to lesion in the prox RCA. Intact stent out OTW. Guideliner and wire out. ACT drawn. Results out of range high seconds. Therapeutic limits - pre-heparin administration 90-150 seconds and monitoring heparin during a vascular procedure >250 seconds. Guide catheter out. 6 [place] 0.75 guide catheter was inserted over the wire. Runthrough guidewire was advanced through the guide catheter to lesion in the prox RCA. 3.0x38mm Stent inserted to lesion in the prox RCA. Intact stent out OTW. Guideliner inserted OTW and advanced to the RCA. Inflation Number : 2 A MDT R GABI 3.0X38 INES -Lot Number# _[id number] EXP: 10/09/2025 was prepped and advanced across the Mid RCA. The stent was deployed at 12 AXEL for 0:22 seconds. Stent balloon out over wire. Inflation Number : 4 A MDT R GABI 3.5X30 INES -Lot Number# _[id number] EXP: 09/05/2023 was prepped and advanced across the Prox RCA. The stent was deployed at 12 AXEL for 0:23 seconds. Stent balloon out over wire. Guideliner out OTW. Results checked. Inflation number : 1 A AB TREK 2.25X15 RX BALLOON was prepped and advanced across the R PDA , then inflated to 8 AXEL for 0:16 seconds. Balloon out. Results checked. Wire out. ACT drawn. Results out of range high seconds. Therapeutic limits - pre-heparin administration 90-150 seconds and monitoring heparin during a vascular procedure >250 seconds. Guide catheter out. 6 [place] XB 3.5 guide catheter was inserted over the wire. IFR guidewire was advanced through the guide catheter to lesion in the prox LAD. Results: 0.91. Wire out. ACT drawn. Results out of range high seconds. Therapeutic limits - pre-heparin administration 90-150 seconds and monitoring heparin during a vascular procedure >250 seconds. Guide catheter out. Physician scrubbed out. A TR Band was successful obtaining hemostatsis at the Right Radial artery insertion site. Post Procedure: Pulses reassessed and unchanged. PERRLA. 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 No VTE prophylaxis required. Medication's Wasted: Lidocaine 1% = 2 mL. Medication's Wasted: Nitro = 49.8 mg. Medication's Wasted: Other = Fentanyl 50mcg Versed 1 mg. Total IV fluids: 102 mL. Vital chart was stopped. Post-op diagnosis: CAD. Complications: None. Estimated blood loss: 5mL-10mL. Responsiveness - Normal response to verbal stimuli; alert and oriented, PERRLA. Airway - Unaffected, no intervention required; spontaneous ventilation. Circulation: W/N/L, pulses unchanged. Nausea/Vomiting: No. Procedure completed. Patient transferred by wheelchair to CPRU. Access Site Site: Right Radial artery Sheath Size: 6 Fr Hemostasis Method: TR Band Hemostasis Success: Successful Procedure Medications Start: 10:15 AM Stop: 10:15 AM Medication: Versed Amount: 1 mg Route: I.V. Start: 10:15 AM Stop: 10:15 AM Medication: Fentanyl Amount: 50 mcg Route: I.V. Start: 10:20 AM Stop: 10:20 AM Medication: Nitrogylcerin Amount: 200 mcg Route: I.A. Start: 10:22 AM Stop: 10:22 AM Medication: Heparin Amount: 5000 units Route: I.V. Start: 10:35 AM Stop: 10:35 AM Medication: Versed Amount: 1 mg Route: I.V. Start: 10:35 AM Stop: 10:35 AM Medication: Fentanyl Amount: 50 mcg Route: I.V. Start: 10:36 AM Stop: 10:36 AM Medication: Heparin Amount: 6000 units Route: I.V. Start: 11:04 AM Stop: 11:04 AM Medication: Versed Amount: 1 mg Route: I.V. Start: 11:04 AM Stop: 11:04 AM Medication: Fentanyl Amount: 50 mcg Route: I.V. Start: 11:07 AM Stop: 11:07 AM Medication: Heparin Amount: 1000 units Route: I.V. Start: 11:27 AM Stop: 11:27 AM Medication: Plavix Amount: 600 mg Route: P.O. I, the attending physician, have reviewed and verified all procedure medications. Yes, all medications given per verbal order History/Risk Factors Hypertension: Yes Dyslipidemia: Yes Peripheral Arterial Disease (PAD): No Myocardial Infarction (MD): No Obesity: No Renal Disease: No Tobacco Use: Former Prior Interventions PCI: No CABG: No Valve Surgery: No Report Signatures Finalized by Diann Ballesteros MD on 03/31/2023 03:02 AM
--- NOTE | 2023-03-21 | XACV_ITS ---
Exam Room: 2 Ht: 188 cm Wt: 115 kg BSA: 2.48 m2 Gender: Male : 1950 Any Known Allergies: No known allergies Exam Priority: Routine Procedure(s): Procedure Description: Diagnostic procedure Procedure Description: PCI procedure Procedure Description: Drug Eluting Coronary Stent Procedure Description: PTCA Procedure Description: Miscellaneous Procedure Description: ACT Procedure Description: Coronary Angiography Procedure Description: Pressure Wire Diagnostic Cath Status: Elective Diagnostic Findings * Left Main has no disease. * Proximal Left Anterior Descending with long segment 50-60% stenosis. Mid LAD with 50% stenosis. Small first diagonal with 50-60% ostial and proximal stenosis. * Circumflex has mild 20% stenosis after take off of first major obtuse marginal. * Proximal Right Coronary Artery to Mid Right Coronary Artery: obstructive 70% stenosis, DOROTHY: 3 flow. * Mid Right Coronary Artery to Distal Right Coronary Artery: significant 80% stenosis, DOROTHY: 3 flow. * Posterior Descending Right: significant 80% stenosis, DOROTHY: 3 flow. * Coronary angiography shows co dominance. * Case was discussed and images were reviewed with Dr. Estrada. He took over the case at this time. PCI Status: Elective PCI Indication: Other Interventional Findings * Procedure detail: We engaged RCA with JR4 guide catheter. Later we used AL 0.75 guide catheter to have more support. IV heparin was administered to maintain anticoagulation. 0.014 run-through guidewire was used to cross the stenosis and was put in distal vessel. We predilated the proximal to mid RCA stenosis with 3.0 x 25 mm semicompliant balloon. This was followed by placement of a 3.0 x 38 mm resolute [place] drug-eluting stent in mid RCA We then placed a second stent measuring 3.5x30mm in the proximal to mid vessel overlapping with the mid vessel stent. Stents were post dilated with 3.5x30mm NC balloon. We also dilated the PDA stenosis with 2.25 x 15 mm semicompliant balloon. Given small caliber vessel with diffuse disease, stent was not placed. At this time final angiogram was performed that showed excellent stent expansion, DOROTHY-3 flow and no significant stenosis.Guidewire and guide catheter were removed. We then turned our attention to LAD. XB 3.5 guidewire was used to engage the left main artery. After normalization IFR wire was advanced into distal vessel. Nonischemic value of 0.90 was obtained. iFR wire and guide catheter were removed. Patient left the Outside Plant Engineer in a stable condition. * Proximal Right Coronary Artery to Mid Right Coronary Artery: 70% stenosis treated with a AB TREK 3.00X15 RX BALLOON, AB TREK 3.00X25 RX BALLOON, and MDT R GABI 3.5X30 INES. 0% residual stenosis, DOROTHY: 3 flow. * Mid Right Coronary Artery to Distal Right Coronary Artery: 80% stenosis treated with a AB TREK 3.00X25 RX BALLOON, and MDT R GABI 3.0X38 INES. 0% residual stenosis, DOROTHY: 3 flow. * Posterior Descending Right: 80% stenosis treated with a AB TREK 2.25X15 RX BALLOON. 0% residual stenosis, DOROTHY: 3 flow. Conclusions 1. Severe proximal to mid RCA stenosis s/p PCI with 2 stents. Severe PDA stenosis s/p balloon angioplasty. 2. Moderate LAD stenosis s/p iFR which is non-ischemic. Medical therapy. 3. Posterior Descending Right was treated with a Balloon. 4. Mid Right Coronary Artery was treated with a Balloon, and Drug Eluting Stent. 5. Proximal Right Coronary Artery was treated with a Balloon, Balloon, and Drug Eluting Stent. Recommendations * Statin and aspirin 81mg lifelong, if tolerated. * Continue Plavix 75mg p.o. daily for at least one year. We will assess at the end of one year to determine continuation or not. * Outpatient cardiology follow up in 1-2 weeks. Interventional RX Recommendation: PCI w/o planned CABG Diagnostic RX Recommendation: PCI w/o planned CABG Anticoagulation: Heparin Pressures Phase:Rest AO : 108 / 80 ( 95 ) @ 11:23:00 AM 103 / 80 ( 90 ) @ 11:25:00 AM 112 / 90 ( 102 ) @ 11:28:00 AM 109 / 83 ( 97 ) @ 11:28:00 AM 111 / 79 ( 96 ) @ 11:38:00 AM 94 / 78 ( 85 ) @ 11:43:00 AM 98 / 85 ( 92 ) @ 12:10:00 PM 101 / 78 ( 91 ) @ 12:15:00 PM Clinical Evaluation EBL: 5mL-10mL Procedural Details Procedure Consent Obtained. Pre-Procedure Time Out. Identified patient by full name and date of as verbalized by the patient/guarantor. Does the consent match the physician's order: Yes. Accurate & Complete Informed Consent: Yes. Inpatient/Outpatient History & Physical on Chart: Yes. If H&P is completed, is and addenduem needed: Yes; If yes, is the addendum complete: Yes. Visualize and Verify Site with Patient/Guarantor: N/A. Relevant Radiology Images available: Yes. Pre-op teaching completed and patient verbalized understanding. The risks, benefits, and alternatives of sedation and/or procedure were discussed by physician. The patient agrees to continue. Procedure started. Physician arrived. [facility] Clinical Fraility Score: 3: Managing Well. Outside Plant Engineer Indications: Suspected CAD. Chest Pain Symptom Assessment: Atypical Angina. Correct patient, site and procedure confirmed by cath team. Current diagnosis: Chest Pain. PERRLA. Strong, equal hand after school driver bilaterally. Lungs clear x 5 lobes. IV Site on Arrival: 20 gauge in the right anticubital. IV Fluids: 0.9% NaCl at KVO. 0 mL infused prior to seed laboratory assistant. Pre Procedural Pulses: bilateral dorsalis pedis was 2+. Pre Procedural Pulses: bilateral posterior tibial was 2+. Pre Procedural Pulses: bilateral radial was 2+. Oxygen started at 2liters/min via nasal canula. right groin was prepped with chloroprep then draped in the usual sterile fashion. right radial was prepped with chloroprep then draped in the usual sterile fashion. Baseline sample Acquired. HR: 65 BPM. Physician scrubbed in. Immediate Pre-Procedure Time Out. Correct Patient: Yes; Correct Procedure: Yes; Correct Site: Yes; Correct Patient Position: Yes; Correct Supplies: Yes; Dried Flammable Prep: Yes; Blood Products Available: N/A;. Lidocaine 1% infiltrated to the right radial. Arterial access obtained. A 5 [place] TIG catheter in over wire. Multiple views taken of left coronary artery. Catheter redirected to the RCA. Multiple views taken of right coronary artery. Dr. Estrada called to review films. Catheter removed over the exchange wire. Dr. Estrada arrived. Dr. Ballesteros scrubbed out. Dr. Estrada scrubbed in to perform intervention. 6 [place] JR 4 guide catheter was inserted over the wire. Runthrough guidewire was advanced through the guide catheter to lesion in the prox RCA. 3.0x25 Balloon inserted to lesion in the prox RCA. Balloon out. Inflation number : 1 A AB TREK 3.00X15 RX BALLOON was prepped and advanced across the Prox RCA , then inflated to 8 AXEL for 0:13 seconds. Balloon out. Guideliner inserted OTW and advanced to the RCA. Inflation number : 1 A AB TREK 3.00X25 RX BALLOON was prepped and advanced across the Mid RCA , then inflated to 10 AXEL for 0:21 seconds. Inflation number: 2 The AB TREK 3.00X25 RX BALLOON was reinflated across the Prox RCA, to 8 AXEL for 0:12 seconds. Inflation number: 3 The AB TREK 3.00X25 RX BALLOON was reinflated across the Prox RCA, to 8 AXEL for 0:26 seconds. Balloon out. Results checked. 3.0x38mm Gabi Stent inserted to lesion in the prox RCA. Intact stent out OTW. Guideliner and wire out. ACT drawn. Results out of range high seconds. Therapeutic limits - pre-heparin administration 90-150 seconds and monitoring heparin during a vascular procedure >250 seconds. Guide catheter out. 6 puerto [place]ican AL 0.75 guide catheter was inserted over the wire. Runthrough guidewire was advanced through the guide catheter to lesion in the prox RCA. 3.0x38mm Stent inserted to lesion in the prox RCA. Intact stent out OTW. Guideliner inserted OTW and advanced to the RCA. Inflation Number : 2 A MDT R GABI 3.0X38 INES -Lot Number# _[id number] EXP: 10/09/2025 was prepped and advanced across the Mid RCA. The stent was deployed at 12 AXEL for 0:22 seconds. Stent balloon out over wire. Inflation Number : 4 A MDT R GABI 3.5X30 INES -Lot Number# _[id number] EXP: 09/05/2023 was prepped and advanced across the Prox RCA. The stent was deployed at 12 AXEL for 0:23 seconds. Stent balloon out over wire. Guideliner out OTW. Results checked. Inflation number : 1 A AB TREK 2.25X15 RX BALLOON was prepped and advanced across the R PDA , then inflated to 8 AXEL for 0:16 seconds. Balloon out. Results checked. Wire out. ACT drawn. Results out of range high seconds. Therapeutic limits - pre-heparin administration 90-150 seconds and monitoring heparin during a vascular procedure >250 seconds. Guide catheter out. 6 [place] XB 3.5 guide catheter was inserted over the wire. IFR guidewire was advanced through the guide catheter to lesion in the prox LAD. Results: 0.91. Wire out. ACT drawn. Results out of range high seconds. Therapeutic limits - pre-heparin administration 90-150 seconds and monitoring heparin during a vascular procedure >250 seconds. Guide catheter out. Physician scrubbed out. A TR Band was successful obtaining hemostatsis at the Right Radial artery insertion site. Post Procedure: Pulses reassessed and unchanged. PERRLA. Strong, equal hand after school driver bilaterally. No VTE prophylaxis required. Medication's Wasted: Lidocaine 1% = 2 mL. Medication's Wasted: Nitro = 49.8 mg. Medication's Wasted: Other = Fentanyl 50mcg Versed 1 mg. Total IV fluids: 102 mL. Vital chart was stopped. Post-op diagnosis: CAD. Complications: None. Estimated blood loss: 5mL-10mL. Responsiveness - Normal response to verbal stimuli; alert and oriented, PERRLA. Airway - Unaffected, no intervention required; spontaneous ventilation. Circulation: W/N/L, pulses unchanged. Nausea/Vomiting: No. Procedure completed. Patient transferred by wheelchair to CPRU. Access Site Site: Right Radial artery Sheath Size: 6 Fr Hemostasis Method: TR Band Hemostasis Success: Successful Procedure Medications Start: 10:15 AM Stop: 10:15 AM Medication: Versed Amount: 1 mg Route: I.V. Start: 10:15 AM Stop: 10:15 AM Medication: Fentanyl Amount: 50 mcg Route: I.V. Start: 10:20 AM Stop: 10:20 AM Medication: Nitrogylcerin Amount: 200 mcg Route: I.A. Start: 10:22 AM Stop: 10:22 AM Medication: Heparin Amount: 5000 units Route: I.V. Start: 10:35 AM Stop: 10:35 AM Medication: Versed Amount: 1 mg Route: I.V. Start: 10:35 AM Stop: 10:35 AM Medication: Fentanyl Amount: 50 mcg Route: I.V. Start: 10:36 AM Stop: 10:36 AM Medication: Heparin Amount: 6000 units Route: I.V. Start: 11:04 AM Stop: 11: AM Medication: Versed Amount: 1 mg Route: I.V. Start: 11:04 AM Stop: 11: AM Medication: Fentanyl Amount: 50 mcg Route: I.V. Start: 11: AM Stop: 11: AM Medication: Heparin Amount: 1000 units Route: I.V. Start: : AM Stop: : AM Medication: Plavix Amount: 600 mg Route: P.O. I, the attending physician, have reviewed and verified all procedure medications. Yes, all medications given per verbal order History/Risk Factors Hypertension: Yes Dyslipidemia: Yes Peripheral Arterial Disease (PAD): No Myocardial Infarction (NV): No Obesity: No Renal Disease: No Tobacco Use: Former Prior Interventions PCI: No CABG: No Valve Surgery: No Report Signatures Diagnostic Workflow Finalized by Diann Ballesteros MD on 04/04/2023 12:25 PM Interventional Workflow Finalized by Remy Estrada MD on 04/02/2023 11:13 AM
[2023-03-21] MEDS: diphenhydrAMINE 50 mg Capsule PO (08:24)
[2023-03-21 08:29] LABS: Basophils # 0.1 10^3/uL (0.0-0.1); Basophils % 0.9 %; Eosinophils # 0.1 10^3/uL (0.0-0.8); Eosinophils % 1.7 %; Hematocrit 46.2 % (37-53); Lymphocytes # 1.5 10^3/uL (0.8-4.8); Mean Corpuscular HGB Conc 32.5 g/dL (30-55); Mean Corpuscular Hemoglobin 31.1 pg (27-33); Mean Corpuscular Volume 95.9 fl (82-101); Mean Platelet Volume 12.8 fL (7.4-10.4); Monocytes # 0.6 10^3/uL (0.2-0.9); Monocytes % 10.8 %; Neutrophils # 3.52 10^3/uL (1.8-7.7); Neutrophils % 60.3 %; Nucleated Red Blood Cells % 0 %; Platelet Count 91 10^3/cmm (157-399); Red Blood Count 4.82 10^6/uL (3.85-5.65); Red Cell Distribution Width 14.1 % (12.1-15.1); White Blood Count 5.84 10^3/uL (3.29-11.43)
[2023-03-21 08:55] LABS: Anion Gap 13.9 (5-19); Blood Urea Nitrogen 14 mg/dL (8-23); Carbon Dioxide 26 mmol/L (22-29); Chloride 101 mmol/L (98-107); Glucose 90 mg/dL (65-115); Osmolality Calculated 284 mOsm/kg (285-295); Potassium 3.9 mmol/L (3.5-5.1); Sodium 137 mmol/L (136-145)
--- NOTE | 2023-03-21 08:58 | P.HP_ITS ---
Same Day Surgery H&P Indication for Procedure/HPI DATE OF PROCEDURE: March 21, 2023 CHIEF COMPLAINT/INDICATIONFOR SURGICAL PROCEDURE: Chest pain, abnormal stress test PREOP DIAGNOSIS: Chest pain, abnormal stress test PLANNED PROCEDURE: Operation Date: 03/21/23 08:30 Proposed Procedures p [facility] w/-w/o [id number] R94.39,R07.9(Left) - Diann Ballesteros MD 72 year old male with chest pains and recently diagnosed afib with RVR.? Patient tells me that he was diagnosed with A-fib when he had eye surgery.? He denies history of CAD, history of strokes. He was managed with Cardizem drip transition to oral Cardizem, managed with heparin drip. He was discharged on Cardizem 60 every 6 hours with Eliquis 5 mg twice daily. He was seen in office with c/o exertional chest pain and shortness of breath. He underwent stress test that howed small sized reversible perfusion abnormality of mild severity of apical ?anterior and apical lateral ferrari. Hewas admitted to the hospital with chest pain and exertional SOB and was set up to have [facility] as an outpatient. Medications/Allergies* Home Medications Medication Instructions Recorded Confirmed Type ascorbic acid (vitamin C) 500 mg 500 mg PO DAILY 03/30/22 03/18/23 History tablet (Vitamin C) magnesium oxide 400 mg PO DAILY 03/30/22 03/18/23 History omega-3 fatty acids 1,000 mg 1,000 mg PO DAILY 03/30/22 03/18/23 History capsule cholecalciferol (vitamin D3) 25 25 mcg PO DAILY 01/15/23 03/18/23 History mcg (1,000 unit) capsule (Vitamin D3) zinc acetate 50 mg (zinc) capsule 50 mg PO DAILY 03/01/23 03/18/23 History Allergies/Adverse Reactions Allergy/AdvReac Type Severity Reaction Status Date / Time No Known Allergies Allergy Verified 03/21/23 07:35 Current Medications: Generic Name Dose Route Start Last Admin Trade Name Freq PRN Reason Stop Dose Admin Sodium Chloride 1,000 mls @ 50 mls/hr 03/21/23 07:30 03/21/23 08:24 Sodium Chloride 0.9% IV 03/22/23 03:29 Not Given .Q20H ONE Pertinent History/Comorbid Conditions* Medical History (Updated 03/01/23 @ 20:14 by Megan Coates MD) History of atrial fibrillation History of hypertension Surgical History (Updated 02/06/23 @ 19:10 by Diann Ballesteros MD) No pertinent past surgical history S/P cataract surgery Family History (Updated 02/01/23 @ 10:14 by Lydia Camargo RN) Myocardial infarction Grandfather Seizure Mother Hypertension Family/Other Stroke Mother Family/Other Social History Smoking and tobacco/nicotine status: former use of tobacco/nicotine Alcohol intake: never Substance/Drug Use: never Pertinent Exam Findings alert, oriented x 3, clear to auscultation bilaterally and regular rate & rhythm Pertinent Data TTE CONCLUSIONS ?Normal left ventricular size and systolic function, EF 57 %. No ?regional wall motion abnormalities. ?Mild biatrial enlargement. ?Mild mitral valve regurgitation. ? Thickened aortic valve.? Features of aortic valve sclerosis. ?There is no pericardial effusion. ?Compared to the study from 01/02/2023, there may not be a ?significant change Lexiscan sestamibi MPI IMPRESSIONS ?1. Small sized reversible perfusion abnormality of mild severity of apical ?anterior and apical lateral ferrari. ?2. This may represent small area of ischemia in left anterior descending artery ?territory. ?3. Overall left ventricular systolic function is normal without regional wall ?motion abnormalities, LVEF=56%. ?4. No Lexiscan induced EKG changes.? Refer to separate report for details. ?5. Scan indicates low risk for cardiac events. Recommendations Surgery/Procedure today Coding Level of Care Code Acute Code for Chg Fwd Diagnoses
--- NOTE | 2023-03-21 11:40 | SUR.PHASEI ---
POST OP IV FLUIDS IV set at 75 ml/hr post cath as ordered.
[2023-03-21] MEDS: sodium chloride 0.9% 1,000 ML 100 ML IV (13:01)
[2023-03-21] MEDS: apixaban 5 mg Tablet PO (19:00)
[2023-03-21] MEDS: metoprolol tartrate 25 mg Tablet PO (22:15)
[2023-03-21] MEDS: atorvastatin 40 mg Tablet PO (22:15)
[2023-03-22] MEDS: sodium chloride 0.9% 1,000 ML 100 ML IV (00:20)
[2023-03-22 00:35] VITALS: BP 118/80; PULSE 60; RESP 17; TEMP 36.8; O2SAT 96
[2023-03-22 04:33] LABS: Basophils # 0.1 10^3/uL (0.0-0.1); Basophils % 0.6 %; Eosinophils # 0.2 10^3/uL (0.0-0.8); Eosinophils % 2.2 %; Lymphocytes # 1.9 10^3/uL (0.8-4.8); Lymphocytes % 24.1 %; Mean Corpuscular HGB Conc 32.6 g/dL (30-55); Mean Corpuscular Hemoglobin 31.7 pg (27-33); Mean Corpuscular Volume 97.3 fl (82-101); Mean Platelet Volume 12.8 fL (7.4-10.4); Monocytes # 0.8 10^3/uL (0.2-0.9); Monocytes % 9.6 %; Neutrophils # 4.92 10^3/uL (1.8-7.7); Neutrophils % 63.2 %; Nucleated Red Blood Cells % 0 %; Platelet Count 79 10^3/cmm (157-399); Red Blood Count 4.42 10^6/uL (3.85-5.65); Red Cell Distribution Width 14.1 % (12.1-15.1); White Blood Count 7.79 10^3/uL (3.29-11.43)
[2023-03-22 04:41] VITALS: BP 117/78; PULSE 65; RESP 18; TEMP 36.6; O2SAT 97
[2023-03-22 04:58] LABS: Blood Urea Nitrogen 13 mg/dL (8-23); Calcium 8.7 mg/dL (8.5-10.5); Carbon Dioxide 26 mmol/L (22-29); Chloride 105 mmol/L (98-107); Glucose 87 mg/dL (65-115); Osmolality Calculated 287 mOsm/kg (285-295); Sodium 139 mmol/L (136-145)
[2023-03-22 06:00] VITALS: PULSE 73
[2023-03-22] MEDS: clopidogrel 75 mg Tablet PO (08:46)
[2023-03-22] MEDS: apixaban 5 mg Tablet PO (08:46)
[2023-03-22] MEDS: aspirin 81 mg EC Tablet PO (08:46)
[2023-03-22] MEDS: metoprolol tartrate 25 mg Tablet PO (08:46)
--- NOTE | 2023-03-22 09:32 | PC.CHAP ---
Pastoral Care Encounter/Spiritual Assessment Type of Contact [] Declined plant ecologist visit [] Patient/Family/Request visit [] Outpatient visit [] Follow-up visit [] Physician referral [] Code/Alert [x] Routine visit [] Staff referral [] Actively dying [] Patient sleeping [] Family support [] [] Out of room [] Palliative care [] [] Receiving care in room [] Pre-surgical visit [] Trauma [] Long length of stay [] ICU visit [] Other: Relational/Emotional Strength [x] Patient feels connected with others/family/visitors/staff [] Distress [] Loneliness/isolation [] Abandonment Spirituality of Patient [x] Person of Kitty [] Attends Caodaism of their Kitty [x] Believes in Prayer [] Reads Bible or Moravian materials [] There are Spiritual issues to be addressed Event Representative Interventions [x] Prayer [x] Active listening [] Non-anxious presence [x] Spiritual/emotional support [] Crisis/trauma care [] Spiritual counseling [] Bereavement support [] Provided bereavement packet [] Provided Bible/devotional materials [] Provided toy/stuffed animal, coloring book to patient or family member [] Provided Communion [] Anointing/[place] [] Salvation [x] Completed spiritual assessment [] Other: Impact on Illness or Injury [] Angry [] Fearful [] Anxious [] Often cries [] Exhaustion [] Unable to work [] Unable to attend protestant [] Unable to walk/stand [] Unable to read [] Unable to drive [] Unable to eat/drink [] Unable to sleep [] Unable to be with family [] Patient intubated [] Other: Summary Time spent with patient 5 min
--- NOTE | 2023-03-22 10:16 | PM.DCS ---
Discharge Providers Date of Admission: Mar Date of Discharge: March 22, 2023 Attending Provider at Discharge: Diann Ballesteros MD Primary Care Provider: Ron Mann DO Reason for Visit Reason for Visit: R94.39, R07.9 Brief History: Elective LHC for chest pains and abnormal stress test Hospital Course Hospital Course Patient underwent coronary angiogram via R radial and was found to severe disease in proximal and mid RCA that underwent balloon angioplasty followed by INES placement. PDA had severe stenosis that underwent balloon angioplasty. Moderate diases in px LAD that underwent iFR and was found to be not significant (0.91). Patient tolerated the procedure well and was discharged home in a stable state. Physical Exam Const: COMMON NORMALS: no acute distress, patient oriented x3 and alert GENERAL APPEARANCE: cooperative, comfortable, well kempt and well hydrated HENMT: COMMON NORMALS: hearing grossly normal bilaterally, external ears normal and moist oral mucous membranes FACE & SINUS: normal facial exam EXTERNAL EAR: Yes external ears normal MOUTH: lip normal Eye: COMMON NORMALS: EOMs intact bilaterally and no scleral icterus GENERAL EYE: appearance normal, both eyes and all related structures ALIGNMENT: Yes alignment normal Neck/C-Spine: COMMON NORMALS: no lymphadenopathy, supple and no JVD GENERAL: Yes normal visual inspection and Yes trachea midline CAROTIDS: Yes normal carotid upstroke Lymph: LYMPHATIC: no lymphadenopathy noted Chest: COMMONS NORMALS: normal inspection of the chest and normal palpation of entire chest wall CHEST: Yes Symmetrical chest wall rise and No tenderness Resp: COMMON NORMALS: clear to auscultation bilaterally EFFORT & INSPECTION: Yes able to speak in complete sentences and No respiratory distress AUSCULTATION: clear to auscultation bilaterally, no crackles, no rales, no rhonchi and no wheezes Cardio: COMMON NORMALS: no JVD, regular rate, regular rhythm, S1 normal heart sound present, S2 normal heart sound present and Peripheral pulses 2+ throughout PALPATION: normal PMI RATE: regular rate RHYTHM: regular rhythm HEART SOUNDS: S1 normal heart sound present, S2 normal heart sound present, no click, no gallops and no murmurs BRUITS: no carotid bruits PERIPHERAL PULSES: Peripheral pulses 2+ throughout, radial pulses present, posterior tibial pulses present and dorsalis pedis present GI: COMMON NORMALS: Soft to palpation AUSCULTATION: Yes normoactive bowel sounds PALPATION: Yes Soft to palpation, No Tenderness to palpation present (GI), No Guarding due to palpation present (GI) and No Rigid due to palpation PERCUSSION: tympanic to percussion Extremity: GENERAL: No clubbing, No cyanosis, No edema and No pallor OTHER: R wrist with no bruising or hematoma. 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 request for service Routine Exams 03/21/23 Taken Laboratory Results WBC 7.79 10^3/uL (3.29-11.43) 03/22/23 04:14 RBC 4.42 10^6/uL (3.85-5.65) 03/22/23 04:14 Hgb 14.00 g/dL (11.27-16.99) 03/22/23 04:14 Hct 43.0 % (37-53) 03/22/23 04:14 MCV 97.3 fl (82-101) 03/22/23 04:14 MCH 31.7 pg (27-33) 03/22/23 04:14 MCHC 32.6 g/dL (30-55) 03/22/23 04:14 RDW 14.1 % (12.1-15.1) 03/22/23 04:14 Plt Count 79 10^3/cmm (157-399) L 03/22/23 04:14 MPV 12.8 fL (7.4-10.4) H 03/22/23 04:14 Neut % (Auto) 63.2 % 03/22/23 04:14 Lymph % (Auto) 24.1 % 03/22/23 04:14 [place] % (Auto) 9.6 % 03/22/23 04:14 Eos % (Auto) 2.2 % 03/22/23 04:14 Baso % (Auto) 0.6 % 03/22/23 04:14 Neut # (Auto) 4.92 10^3/uL (1.8-7.7) 03/22/23 04:14 Lymph # (Auto) 1.9 10^3/uL (0.8-4.8) 03/22/23 04:14 [place] # (Auto) 0.8 10^3/uL (0.2-0.9) 03/22/23 04:14 Eos # (Auto) 0.2 10^3/uL (0.0-0.8) 03/22/23 04:14 Baso # (Auto) 0.1 10^3/uL (0.0-0.1) 03/22/23 04:14 Nucleated RBC % (auto) 0 % 03/22/23 04:14 Nucleated RBCs # 0.0 /100WBC 03/22/23 04:14 Sodium 139 mmol/L (136-145) 03/22/23 04:14 Potassium 4.0 mmol/L (3.5-5.1) 03/22/23 04:14 Chloride 105 mmol/L (98-107) 03/22/23 04:14 Carbon Dioxide 26 mmol/L (22-29) 03/22/23 04:14 Anion Gap 12.0 (5-19) 03/22/23 04:14 BUN 13 mg/dL (8-23) 03/22/23 04:14 Creatinine 0.8 mg/dL (0.7-1.2) 03/22/23 04:14 GFR Calculation Not Reportable 03/22/23 04:14 Glucose 87 mg/dL (65-115) 03/22/23 04:14 Calculated Osmolality 287 mOsm/kg (285-295) 03/22/23 04:14 Calcium 8.7 mg/dL (8.5-10.5) 03/22/23 04:14 Procedures Performed Left heart cathetarization Vitals Last Vital Signs Temp 97.8 F 03/22/23 04:41 Pulse 73 03/22/23 06:00 Resp 18 03/22/23 04:41 BP 117/78 03/22/23 04:41 Pulse Ox 97 03/22/23 04:41 O2 Del Method Room Air 03/21/23 14:10 O2 Flow Rate 2 03/21/23 12:00 Discharge Plan Discharge Patient Disposition: Home Prescriptions: New clopidogrel 75 mg Tablet 75 mg PO DAILY Qty: 90 2RF Continued nitroglycerin 0.4 mg tablet, sublingual 0.4 mg sublingual Q5M PRN (Reason: chest pain) Qty: 30 3RF Rx Instructions: do not exceed 3 doses per episode Eliquis 5 mg tablet 5 mg PO BID Qty: 180 2RF Hold Instructions: Resume on 03/05/23. omega-3 fatty acids 1,000 mg Capsule 1,000 mg PO DAILY ascorbic acid (vitamin C) [Vitamin C] 500 mg Tablet 500 mg PO DAILY magnesium oxide 400 mg magnesium Tablet 400 mg PO DAILY zinc acetate 50 mg (zinc) Capsule 50 mg PO DAILY atorvastatin 40 mg Tablet 40 mg PO BEDTIME Qty: 90 0RF metoprolol tartrate 25 mg Tablet 25 mg PO BID@0900,2100 Qty: 180 0RF cholecalciferol (vitamin D3) [Vitamin D3] 25 mcg (1,000 unit) Capsule 25 mcg PO DAILY aspirin 81 mg tablet,delayed release (DR/EC) 81 mg PO DAILY Qty: 90 0RF Rx Instructions: stop on 04/21/23 Discontinued diltiazem HCl 240 mg capsule,extended release 24 hr 240 mg PO DAILY Qty: 30 3RF Discharge Orders: Discharge Order (Routine); Ordered 03/22/23 Ordered By: Diann Ballesteros Referrals: Nida Medina FNP [Nurse Practitioner] - 03/28/23 11:00 am Ron Mann DO [Primary Care Provider] - 03/29/23 1:40 pm Diet: Cardiac Activity: Limit activity as instructed Patient Instructions: Clopidogrel (By mouth) (Plavix), Coronary Angioplasty (DC), Chest Pain Stoplight, Post Angiogram Home Care Instructions Activity Restrictions/Additional Instructions: Do not lift anything more than 5 lbs for 1 week. Keep the site dry and clean Take medications as prescribed and follow up as scheduled. Stop Aspirin on 04/21/23 Watch out for any signs of bleeding (blood in stool, urine or nose bleeds) BP/HR log x 2 weeks Discharge Date/Time: 03/22/23 11:00 Discharge Attestations Time Spent in Discharge Care*: greater than 30 min Specific Discharge Activities: educating patient, educating and/or supporting family/caregiver, documenting/other paperwork and evaluating patient/reviewing data Quality Metrics Clinical Quality Measures [ No reported AMI, CVA or VTE this stay] Coding Level of Care Code Acute Code for Chg Fwd Diagnoses
--- NOTE | 2023-03-22 11:05 | PC.NURSE ---
Discharge Note Patient discharged to [home] via [w/c to POV] accompanied by [his ]. 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 Mobile pharmacy medications and/or prescriptions provided. Belongings/home medications returned.
== END 2023-03-22 11:00 | disposition home or self-care (01) ==
LOC: CCL 07:22 → CSU 16:08
PROVIDERS: Internal Medicine; PCP Family Medicine; Visit Provider Internal Medicine Cardiovascular Disease
DX: I25.10 Atherosclerotic heart disease of native coronary artery without angina pectoris (principal); I10 Essential (primary) hypertension; E78.5 Hyperlipidemia, unspecified; Z87.891 Personal history of nicotine dependence; I48.91 Unspecified atrial fibrillation; Z86.73 Personal history of transient ischemic attack (TIA), and cerebral infarction without residual deficits; Z79.01 Long term (current) use of anticoagulants
CPT/HCPCS: 36415; 80048; 85025; 85347; 93454; 93571; 96361; 96365; 96367; 96376; 99152; 99153; C1725; C1769; C1874; C1887; C1894; C9600; J1644; J2250; J3010; J3490; J7030; Q0163; Q9967

== ENCOUNTER → 2023-03-28 10:38 | Outpatient (BNVA) | payer MEDICARE, SELFPAY | PROVIDERS: PCP Family Medicine; Visit Provider Nurse Practitioner Family | DX: I25.10 Atherosclerotic heart disease of native coronary artery without angina pectoris (principal); Z87.891 Personal history of nicotine dependence | CPT/HCPCS: 36415; 80048; 99214 ==

== ENCOUNTER 2023-05-11 13:30 | Outpatient (CLI) | payer MEDICARE, SELFPAY | END 2023-05-11 13:31 | disposition home or self-care (01) | LOC: SLEEP 05-12 10:49 | PROVIDERS: PCP Family Medicine; Visit Provider Family Medicine | DX: G47.33 Obstructive sleep apnea (adult) (pediatric) (principal); G47.00 Insomnia, unspecified | CPT/HCPCS: G0399 ==

== ENCOUNTER → 2023-08-24 09:54 | Outpatient (BNVA) | payer MEDICARE, SELFPAY | PROVIDERS: PCP Family Medicine; Visit Provider Internal Medicine Cardiovascular Disease | DX: I25.10 Atherosclerotic heart disease of native coronary artery without angina pectoris (principal); I10 Essential (primary) hypertension; E78.5 Hyperlipidemia, unspecified; I35.0 Nonrheumatic aortic (valve) stenosis; I49.8 Other specified cardiac arrhythmias; I48.91 Unspecified atrial fibrillation; Z79.01 Long term (current) use of anticoagulants; Z79.82 Long term (current) use of aspirin; Z87.891 Personal history of nicotine dependence | CPT/HCPCS: 99215 ==

== ENCOUNTER → 2023-11-08 09:26 | Outpatient (BNVA) | payer MEDICARE, SELFPAY | PROVIDERS: PCP Family Medicine; Visit Provider Family Medicine | DX: Z13.6 Encounter for screening for cardiovascular disorders (principal); I35.0 Nonrheumatic aortic (valve) stenosis; I25.10 Atherosclerotic heart disease of native coronary artery without angina pectoris; I48.91 Unspecified atrial fibrillation; E78.5 Hyperlipidemia, unspecified | CPT/HCPCS: 80053; 80061; 85025 ==

== ENCOUNTER → 2023-12-12 08:28 | Outpatient (BNVA) | payer MEDICARE, SELFPAY | PROVIDERS: PCP Family Medicine; Visit Provider Family Medicine | DX: D69.6 Thrombocytopenia, unspecified (principal) | CPT/HCPCS: 85025 ==

== ENCOUNTER 2024-01-30 14:47 | Oncology outpatient (recurring) (ONCR) | payer MEDICARE, SELFPAY ==
[2024-01-30 16:23] LABS: Basophils % 0.5 %; Eosinophils # 0.1 10^3/uL (0.0-0.8); Eosinophils % 1.5 %; Hematocrit 45.3 % (37-53); Lymphocytes # 1.7 10^3/uL (0.8-4.8); Lymphocytes % 25.8 %; Mean Corpuscular HGB Conc 32.7 g/dL (30-55); Mean Corpuscular Hemoglobin 31.6 pg (27-33); Mean Corpuscular Volume 96.8 fl (82-101); Mean Platelet Volume 12.8 fL (7.4-10.4); Monocytes # 0.7 10^3/uL (0.2-0.9); Monocytes % 11.2 %; Neutrophils # 4.01 10^3/uL (1.8-7.7); Neutrophils % 60.7 %; Nucleated Red Blood Cells % 0 %; Platelet Count 83 10^3/cmm (157-399); Red Blood Count 4.68 10^6/uL (3.85-5.65); Red Cell Distribution Width 13.9 % (12.1-15.1)
[2024-01-30 16:45] LABS: Alanine Aminotransferase 23 U/L (0-41); Alkaline Phosphatase 88 U/L (40-130); Aspartate Amino Transferase 26 U/L (0-40); Blood Urea Nitrogen 17 mg/dL (8-23); Calcium 8.9 mg/dL (8.5-10.5); Carbon Dioxide 25 mmol/L (22-29); Chloride 104 mmol/L (98-107); Creatinine Clr Calc Pharmacy 110.9977; Globulin 2.9 g/dL (1.3-4.6); Glucose 84 mg/dL (65-115); Osmolality Calculated 291 mOsm/kg (285-295); Sodium 140 mmol/L (136-145); Total Bilirubin 0.5 mg/dL (0.15-1.2); Total Protein 6.9 g/dL (6.6-8.7)
[2024-01-30 16:46] LABS: Erythrocyte Sedimentation Rate 9 mm/hr (0-10); LAB Peripheral Smear Sent for Review
[2024-01-30 17:00] LABS: Vitamin B12 315 pg/mL (232-1245)
[2024-01-30 18:02] LABS: Folate Level 9.7 ng/mL (4.5-32.2)
[2024-01-30 20:10] LABS: Lactate Dehydrogenase 166 U/L (135-225)
[2024-02-01 14:43] LABS: Anti-Nuclear Antibody Screen NEGATIVE (NEGATIVE)
== END 2024-02-04 23:59 | disposition home or self-care (01) ==
PROVIDERS: PCP Family Medicine; Visit Provider Internal Medicine Medical Oncology
DX: D69.6 Thrombocytopenia, unspecified (principal); Z87.891 Personal history of nicotine dependence
CPT/HCPCS: 36415; 80053; 82607; 82746; 83615; 85025; 85651; 86038; 86140; 99204

== ENCOUNTER → 2024-02-29 11:25 | Outpatient (BNVA) | payer MEDICARE, SELFPAY | PROVIDERS: PCP Family Medicine; Visit Provider Internal Medicine Cardiovascular Disease | DX: Z86.79 Personal history of other diseases of the circulatory system (principal); I25.10 Atherosclerotic heart disease of native coronary artery without angina pectoris; I35.0 Nonrheumatic aortic (valve) stenosis; I49.9 Cardiac arrhythmia, unspecified; Z87.891 Personal history of nicotine dependence | CPT/HCPCS: 99214 ==

== ENCOUNTER → 2024-04-24 09:17 | Outpatient (BNVA) | payer MEDICARE, SELFPAY | PROVIDERS: PCP Family Medicine; Visit Provider Family Medicine | DX: I35.0 Nonrheumatic aortic (valve) stenosis (principal); R07.9 Chest pain, unspecified; I48.91 Unspecified atrial fibrillation; E78.5 Hyperlipidemia, unspecified; D69.6 Thrombocytopenia, unspecified | CPT/HCPCS: 80053; 80061; 85025 ==

== ENCOUNTER → 2024-09-24 12:12 | Outpatient (BNVA) | payer MEDICARE, SELFPAY | PROVIDERS: PCP Family Medicine; Visit Provider Internal Medicine Cardiovascular Disease | DX: I48.20 Chronic atrial fibrillation, unspecified (principal); Z79.01 Long term (current) use of anticoagulants; I25.10 Atherosclerotic heart disease of native coronary artery without angina pectoris; I35.0 Nonrheumatic aortic (valve) stenosis; I49.8 Other specified cardiac arrhythmias; R07.9 Chest pain, unspecified | CPT/HCPCS: 93005; 99214 ==

== ENCOUNTER → 2025-04-08 14:01 | Outpatient (BNVA) | payer MEDICARE, SELFPAY | PROVIDERS: PCP Family Medicine; Visit Provider Nurse Practitioner Family | DX: I25.10 Atherosclerotic heart disease of native coronary artery without angina pectoris (principal); I48.20 Chronic atrial fibrillation, unspecified; Z79.01 Long term (current) use of anticoagulants; I10 Essential (primary) hypertension; Z87.891 Personal history of nicotine dependence | CPT/HCPCS: 99214 ==